=== PATIENT | female | born 1955 | race Caucasian/White ===

== ENCOUNTER → 2019-03-19 | Outpatient (CLI) | payer OTHER ==
[~2019-03-19] MED LIST: Flomax0.4 MG PO; IBUP600 PO; KETO10 PO; METPRE4DP PO; ONDA4ODT MM; Robaxin-750750 MG PO; TRAM50 PO; Ultram50 MG PO; Zofran Odt4 MG SL
[2019-03-19 19:39] LABS: Creatinine, Urine Random 88.8 mg/dL (27.00-270.00); Microalb/Creat Ratio UR, Rand 55.293 mg/g (0.000-30.000); Microalbumin, Random Urine 49.1 mg/L (0.000-20.000)
== END ==
LOC: LAB SHORT 13:45 → LAB EV 13:45
PROVIDERS: Nurse Practitioner Family
DX: E11.65 Type 2 diabetes mellitus with hyperglycemia (principal); R42 Dizziness and giddiness
CPT/HCPCS: 82043; 82570; 87077; 87086; 87186

== ENCOUNTER → 2019-03-20 | Outpatient (CLI) | payer OTHER ==
[2019-03-20 19:02] LABS: Adenovirus F 40/41 Not Detected (NOT DETECT); Astrovirus Not Detected (NOT DETECT); Campylobacter Sp Not Detected (NOT DETECT); Cryptosporidium Not Detected (NOT DETECT); Cyclospora Cayetanensis Not Detected (NOT DETECT); E. Coli O157 Not Detected (NOT DETECT); Entamoeba Histolytica Not Detected (NOT DETECT); Enteroaggregative E. coli-EAEC Not Detected (NOT DETECT); Enteropathogenic E. coli-EPEC Not Detected (NOT DETECT); Enterotoxigenic E. coli-ETEC Not Detected (NOT DETECT); Giardia Lamblia Not Detected (NOT DETECT); Norovirus GI/GII Not Detected (NOT DETECT); Plesiomonas Shigelloides Not Detected (NOT DETECT); Rotavirus A Not Detected (NOT DETECT); Salmonella Sp Not Detected (NOT DETECT); Sapovirus Not Detected (NOT DETECT); Shiga Toxin-prod E. coli-STEC Not Detected (NOT DETECT); Shigella/Enteroin E. coli-EIEC Not Detected (NOT DETECT); Vibrio Cholerae Not Detected (NOT DETECT); Vibrio Sp Not Detected (NOT DETECT); Yersinia Enterocolitica Not Detected (NOT DETECT)
== END | disposition home or self-care (01) ==
LOC: LAB SHORT 12:27 → LAB EV 12:27
PROVIDERS: Physician Assistant Medical
DX: A06.1 Chronic intestinal amebiasis (principal)
CPT/HCPCS: 87507

== ENCOUNTER → 2019-04-03 | Outpatient (CLI) | payer OTHER ==
[2019-04-03 16:59] LABS: BASOPHILS ABSOLUTE AUTO 0.07 K/mm3 (0.00-0.23); BASOPHILS PERCENT AUTO 1 % (0-2); EOSINOPHILS ABSOLUTE AUTO 0.23 K/mm3 (0.00-0.68); EOSINOPHILS PERCENT AUTO 3 % (0-6); Hematocrit 39.9 % (33.0-51.0); Hemoglobin 13.2 g/dL (11.5-16.0); IMMATURE GRAN ABSOLUTE AUTO 0.03 K/mm3 (0.00-0.10); IMMATURE GRAN PERCENT AUTO 0 % (0-1); LYMPHOCYTES ABSOLUTE AUTO 2.77 K/mm3 (0.84-5.20); LYMPHOCYTES PERCENT AUTO 32 % (21-46); MONOCYTES ABSOLUTE AUTO 0.78 K/mm3 (0.16-1.47); MONOCYTES PERCENT AUTO 9 % (4-13); Mean Corpuscular HGB 28.2 pg (26.0-34.0); Mean Corpuscular HGB Conc 33.1 g/dL (31.5-36.5); Mean Corpuscular Volume 85 fL (80-100); Mean Platelet Volume 11.7 fL (9.1-12.4); NEUTROPHILS ABSOLUTE AUTO 4.89 K/mm3 (1.96-9.15); NEUTROPHILS PERCENT AUTO 56 % (41-73); Platelet Count 245 K/mm3 (150-400); RDW Coefficient Variation 13.2 % (11.7-14.2); RDW Standard Deviation 40.9 fL (35.1-46.3); Red Blood Cell Count 4.68 M/mm3 (3.80-5.20); White Blood Cell Count 8.77 K/mm3 (4.00-11.30)
[2019-04-03 17:18] LABS: Alanine Aminotransfer (ALT/SGP 27 U/L (12-78); Albumin, Blood 3.8 g/dL (3.4-5.0); Alk Phos 84 U/L (40-126); Anion Gap 10 mmol/L (6-16); Aspartate Aminotrans (AST/SGOT 16 U/L (12-37); Bilirubin, Total 0.3 mg/dL (0.1-1.0); Blood Urea Nitrogen 19 mg/dL (8-24); Bun/Creatinine Ratio 23.8 (12.0-20.0); CO2, Blood 27 mmol/L (21-32); Calcium, Blood 8.8 mg/dL (8.5-10.1); Chloride, Blood 100 mmol/L (98-108); Globulin, Blood 3.7 g/dL (2.2-4.0); Glomerular Filtration Rate >60 (60-); Glucose, Blood 223 mg/dL (70-99); Potassium, Blood 4.5 mmol/L (3.5-5.5); Sodium, Blood 137 mmol/L (136-145); Thyroid Stimulating Hormone 1.833 uIU/mL (0.360-4.800); Total Protein, Blood 7.5 g/dL (6.4-8.2)
[2019-04-05 06:06] LABS: COMPLEMENT C3, SERUM 154 mg/dL (82-167); COMPLEMENT C4, SERUM 30 mg/dL (14-44)
[2019-04-05 18:05] LABS: ANTI-DSDNA ANTIBODIES <1 IU/mL (0-9); RNP ANTIBODIES <0.2 AI (0.0-0.9); SJOGREN'S ANTI-SS-A <0.2 AI (0.0-0.9); SJOGREN'S ANTI-SS-B <0.2 AI (0.0-0.9); SMITH ANTIBODIES <0.2 AI (0.0-0.9)
== END | disposition home or self-care (01) ==
LOC: LAB EV 16:53 → LAB SHORT 16:53
PROVIDERS: Physician Assistant
DX: R21 Rash and other nonspecific skin eruption (principal); R53.83 Other fatigue
CPT/HCPCS: 80053; 84443; 85025; 85651; 86160; 86225; 86235

== ENCOUNTER 2019-04-30 01:34 | Emergency (ER) | payer OTHER ==
[~2019-04-30] VITALS: Ht 160 cm; Wt 72.6 kg
[2019-04-30] MEDS ORDERED: INSULANPEN (02:19)
[2019-04-30] MEDS ORDERED: METF500 (02:19)
[2019-04-30] MEDS ORDERED: CYCL10 PO (03:05)
[2019-09-16] MEDS ORDERED: IBUP800 (14:16)
== END 2019-04-30 03:43 | disposition home or self-care (01) ==
LOC: ER 01:34
DX: M54.42 Lumbago with sciatica, left side (principal); Z88.5 Allergy status to narcotic agent; E11.9 Type 2 diabetes mellitus without complications
CPT/HCPCS: 96372; 99283-25; J1885

== ENCOUNTER 2019-05-01 22:45 | Emergency (ER) | payer OTHER ==
[~2019-05-01] VITALS: Ht 160 cm; Wt 72.6 kg
[~2019-05-01 22:45] MED LIST changes: +CYCL10 PO; +INSULANPEN; +METF500
[2019-05-02] MEDS ORDERED: KETO10 PO (01:04)
[2019-05-02] MEDS ORDERED: Prednisone20 MG PO (01:04)
[2019-05-03] MEDS ORDERED: Norco 5-325 Ta1 EACH PO (14:24)
[2019-05-03] MEDS ORDERED: METF500 PO (14:24)
[2019-09-16] MEDS ORDERED: IBUP800 (14:16)
== END 2019-05-02 01:35 | disposition home or self-care (01) ==
LOC: ER 22:45
DX: M54.42 Lumbago with sciatica, left side (principal); Z88.5 Allergy status to narcotic agent; Z79.899 Other long term (current) drug therapy; Z79.4 Long term (current) use of insulin; Z79.52 Long term (current) use of systemic steroids; E11.9 Type 2 diabetes mellitus without complications
CPT/HCPCS: 96372; 99282-25; J1885; J7512

== ENCOUNTER 2019-05-03 04:37 | Emergency (ER) | payer OTHER ==
[~2019-05-03] VITALS: Ht 160 cm; Wt 72.6 kg
[~2019-05-03 04:37] MED LIST changes: +Prednisone20 MG PO
[2019-05-03 08:50] LABS: BASOPHILS ABSOLUTE AUTO 0.05 K/mm3 (0.00-0.23); BASOPHILS PERCENT AUTO 1 % (0-2); EOSINOPHILS ABSOLUTE AUTO 0.17 K/mm3 (0.00-0.68); EOSINOPHILS PERCENT AUTO 2 % (0-6); Hematocrit 40.3 % (33.0-51.0); Hemoglobin 13.3 g/dL (11.5-16.0); IMMATURE GRAN ABSOLUTE AUTO 0.03 K/mm3 (0.00-0.10); IMMATURE GRAN PERCENT AUTO 0 % (0-1); LYMPHOCYTES ABSOLUTE AUTO 3.42 K/mm3 (0.84-5.20); LYMPHOCYTES PERCENT AUTO 46 % (21-46); MONOCYTES PERCENT AUTO 11 % (4-13); Mean Corpuscular HGB 28.9 pg (26.0-34.0); Mean Corpuscular Volume 88 fL (80-100); Mean Platelet Volume 11.9 fL (9.1-12.4); NEUTROPHILS ABSOLUTE AUTO 2.92 K/mm3 (1.96-9.15); NEUTROPHILS PERCENT AUTO 40 % (41-73); Platelet Count 240 K/mm3 (150-400); RDW Coefficient Variation 13.1 % (11.7-14.2); RDW Standard Deviation 41.9 fL (35.1-46.3); White Blood Cell Count 7.39 K/mm3 (4.00-11.30)
[2019-05-03 09:14] LABS: Troponin I <0.015 ng/mL (0.000-0.040)
[2019-05-03 09:17] LABS: Alanine Aminotransfer (ALT/SGP 16 U/L (12-78); Albumin, Blood 3.3 g/dL (3.4-5.0); Alk Phos 76 U/L (50-136); Anion Gap 6 mmol/L (6-16); Aspartate Aminotrans (AST/SGOT 6 U/L (12-37); Bilirubin, Total 0.5 mg/dL (0.1-1.0); Blood Urea Nitrogen 27 mg/dL (8-24); Bun/Creatinine Ratio 46.2 (12.0-20.0); CO2, Blood 26 mmol/L (21-32); Chloride, Blood 104 mmol/L (98-108); Creatinine, Blood 0.59 mg/dL (0.40-1.00); Globulin, Blood 3.3 g/dL (2.2-4.0); Glomerular Filtration Rate >60 (60-); Glucose, Blood 281 mg/dL (70-99); Sodium, Blood 136 mmol/L (136-145); Total Protein, Blood 6.6 g/dL (6.4-8.2)
[2019-05-03] MEDS ORDERED: METF500 PO (14:24)
[2019-05-03] MEDS ORDERED: Norco 5-325 Ta1 EACH PO (14:24)
[2019-09-16] MEDS ORDERED: IBUP800 (14:16)
== END 2019-05-03 18:14 | disposition home or self-care (01) ==
LOC: ER 04:37
PROVIDERS: Emergency Medicine
DX: M54.32 Sciatica, left side (principal); Z88.5 Allergy status to narcotic agent; Z88.8 Allergy status to other drugs, medicaments and biological substances; Z79.899 Other long term (current) drug therapy; Z79.4 Long term (current) use of insulin; Z79.52 Long term (current) use of systemic steroids; E11.9 Type 2 diabetes mellitus without complications
CPT/HCPCS: 70450; 72100; 72148; 73502; 80053; 84484; 85025; 93005; 93010; 96361; 96372-59; 96374; 96375; 96376; 99285-25; J1170; J2405; J3010

== ENCOUNTER 2019-06-27 05:37 | Emergency (ER) | payer OTHER ==
[~2019-06-27] VITALS: Ht 160 cm; Wt 69.0 kg
[~2019-06-27 05:37] MED LIST changes: +METF500 PO; +Norco 5-325 Ta1 EACH PO
[2019-06-27 07:00] LABS: Source, Urine Clean Catch
[2019-06-27 07:04] LABS: Bilirubin, Urine Neg (Neg); Blood, Urine 2+ (Neg); Glucose Qualitative, Urine 2+ (Neg); Ketones, Urine 1+ (Neg); Leukocyte Esterase, Urine 2+ (Neg); Nitrite, Urine Neg (Neg); Protein, Urine 3+ (Neg); Urobilinogen, Urine NORM (Normal)
[2019-06-27 07:05] LABS: Appearance, Urine Hazy (Clear); Color, Urine Yellow (P-Yellow)
[2019-06-27 07:14] LABS: Squamous Epithelial Cells Many /hpf (Few)
[2019-06-27 07:15] LABS: Amorphous Mod (0-Heavy); Bacteria Few /hpf; Granular Casts 0-2 /lpf (0); Mucus Heavy (0-Heavy); WBC Cast 0-2 /lpf (0)
[2019-06-27 07:16] LABS: Hyaline Casts TNTC /lpf (0-2)
[2019-06-27 07:29] LABS: BASOPHILS ABSOLUTE AUTO 0.06 K/mm3 (0.00-0.23); BASOPHILS PERCENT AUTO 1 % (0-2); EOSINOPHILS ABSOLUTE AUTO 0.27 K/mm3 (0.00-0.68); EOSINOPHILS PERCENT AUTO 3 % (0-6); Hematocrit 44.9 % (33.0-51.0); Hemoglobin 14.4 g/dL (11.5-16.0); IMMATURE GRAN ABSOLUTE AUTO 0.06 K/mm3 (0.00-0.10); IMMATURE GRAN PERCENT AUTO 1 % (0-1); LYMPHOCYTES ABSOLUTE AUTO 3.06 K/mm3 (0.84-5.20); LYMPHOCYTES PERCENT AUTO 32 % (21-46); MONOCYTES ABSOLUTE AUTO 0.86 K/mm3 (0.16-1.47); MONOCYTES PERCENT AUTO 9 % (4-13); Mean Corpuscular HGB 27.9 pg (26.0-34.0); Mean Corpuscular HGB Conc 32.1 g/dL (31.5-36.5); Mean Corpuscular Volume 87 fL (80-100); Mean Platelet Volume 11.8 fL (9.1-12.4); NEUTROPHILS ABSOLUTE AUTO 5.14 K/mm3 (1.96-9.15); NEUTROPHILS PERCENT AUTO 54 % (41-73); Platelet Count 278 K/mm3 (150-400); RDW Coefficient Variation 13.3 % (11.7-14.2); RDW Standard Deviation 42.3 fL (35.1-46.3); Red Blood Cell Count 5.16 M/mm3 (3.80-5.20); White Blood Cell Count 9.45 K/mm3 (4.00-11.30)
[2019-06-27 07:51] LABS: Alanine Aminotransfer (ALT/SGP 24 U/L (12-78); Albumin, Blood 3.8 g/dL (3.4-5.0); Alk Phos 79 U/L (50-136); Anion Gap 9 mmol/L (6-16); Aspartate Aminotrans (AST/SGOT 12 U/L (12-37); Bilirubin, Total 0.3 mg/dL (0.1-1.0); Blood Urea Nitrogen 21 mg/dL (8-24); Bun/Creatinine Ratio 32.6 (12.0-20.0); CO2, Blood 26 mmol/L (21-32); Calcium, Blood 9.3 mg/dL (8.5-10.1); Chloride, Blood 102 mmol/L (98-108); Creatinine, Blood 0.64 mg/dL (0.40-1.00); Globulin, Blood 3.9 g/dL (2.2-4.0); Glomerular Filtration Rate >60 (60-); Glucose, Blood 237 mg/dL (70-99); Potassium, Blood 4.1 mmol/L (3.5-5.5); Sodium, Blood 137 mmol/L (136-145); Total Protein, Blood 7.7 g/dL (6.4-8.2)
[2019-09-16] MEDS ORDERED: IBUP800 (14:16)
== END 2019-06-27 09:45 | disposition home or self-care (01) ==
LOC: ER 05:37
PROVIDERS: Emergency Medicine
DX: R10.9 Unspecified abdominal pain (principal); Z88.5 Allergy status to narcotic agent; Z88.8 Allergy status to other drugs, medicaments and biological substances; Z79.4 Long term (current) use of insulin; E11.9 Type 2 diabetes mellitus without complications
CPT/HCPCS: 36415; 74176; 80053; 81001; 85025; 96374; 99284-25; J1885

== ENCOUNTER 2019-07-14 10:50 | Emergency (ER) | payer OTHER ==
[~2019-07-14] VITALS: Ht 160 cm; Wt 68.0 kg
[2019-07-14] MEDS ORDERED: DULO30 PO (11:30)
[2019-07-14 11:42] LABS: BASOPHILS ABSOLUTE AUTO 0.05 K/mm3 (0.00-0.23); BASOPHILS PERCENT AUTO 1 % (0-2); EOSINOPHILS ABSOLUTE AUTO 0.15 K/mm3 (0.00-0.68); EOSINOPHILS PERCENT AUTO 2 % (0-6); Hematocrit 39.5 % (33.0-51.0); Hemoglobin 13.3 g/dL (11.5-16.0); IMMATURE GRAN ABSOLUTE AUTO 0.07 K/mm3 (0.00-0.10); IMMATURE GRAN PERCENT AUTO 1 % (0-1); LYMPHOCYTES ABSOLUTE AUTO 2.74 K/mm3 (0.84-5.20); LYMPHOCYTES PERCENT AUTO 29 % (21-46); MONOCYTES ABSOLUTE AUTO 0.78 K/mm3 (0.16-1.47); MONOCYTES PERCENT AUTO 8 % (4-13); Mean Corpuscular HGB 28.5 pg (26.0-34.0); Mean Corpuscular HGB Conc 33.7 g/dL (31.5-36.5); Mean Corpuscular Volume 85 fL (80-100); Mean Platelet Volume 12.2 fL (9.1-12.4); NEUTROPHILS ABSOLUTE AUTO 5.69 K/mm3 (1.96-9.15); NEUTROPHILS PERCENT AUTO 60 % (41-73); Platelet Count 263 K/mm3 (150-400); RDW Coefficient Variation 13.4 % (11.7-14.2); RDW Standard Deviation 41.5 fL (35.1-46.3); Red Blood Cell Count 4.66 M/mm3 (3.80-5.20); White Blood Cell Count 9.48 K/mm3 (4.00-11.30)
[2019-07-14 11:47] LABS: Anion Gap 11 mmol/L (6-16); Blood Urea Nitrogen 22 mg/dL (8-24); CO2, Blood 25 mmol/L (21-32); Calcium, Blood 8.6 mg/dL (8.5-10.1); Chloride, Blood 103 mmol/L (98-108); Creatinine, Blood 0.51 mg/dL (0.40-1.00); Glomerular Filtration Rate >60 (60-); Glucose, Blood 204 mg/dL (70-99); Potassium, Blood 3.9 mmol/L (3.5-5.5); Sodium, Blood 139 mmol/L (136-145)
[2019-07-14] MEDS ORDERED: Norco 5-325 Ta1 EACH PO (13:19)
[2019-07-14] MEDS ORDERED: PROM25 PO (13:19)
[2019-09-16] MEDS ORDERED: IBUP800 (14:16)
== END 2019-07-14 17:10 | disposition home or self-care (01) ==
LOC: ER 10:50
PROVIDERS: Emergency Medicine
DX: F41.9 Anxiety disorder, unspecified (principal); D32.9 Benign neoplasm of meninges, unspecified; Z88.5 Allergy status to narcotic agent; Z88.8 Allergy status to other drugs, medicaments and biological substances; Z79.4 Long term (current) use of insulin; Z79.899 Other long term (current) drug therapy; E11.9 Type 2 diabetes mellitus without complications
CPT/HCPCS: 36415; 70450; 80048; 85025; 96361; 96374; 96375; 99284-25; J0780; J1885; J2060; J2405; J3010; J7030

== ENCOUNTER 2019-08-19 00:50 | Emergency (ER) | payer OTHER ==
[~2019-08-19] VITALS: Ht 160 cm; Wt 69.0 kg
[~2019-08-19 00:50] MED LIST changes: +DULO30 PO; +PROM25 PO
[2019-08-19 02:16] LABS: BASOPHILS ABSOLUTE AUTO 0.06 K/mm3 (0.00-0.23); BASOPHILS PERCENT AUTO 1 % (0-2); EOSINOPHILS ABSOLUTE AUTO 0.17 K/mm3 (0.00-0.68); EOSINOPHILS PERCENT AUTO 2 % (0-6); Hematocrit 39.8 % (33.0-51.0); Hemoglobin 13.2 g/dL (11.5-16.0); IMMATURE GRAN ABSOLUTE AUTO 0.05 K/mm3 (0.00-0.10); IMMATURE GRAN PERCENT AUTO 1 % (0-1); LYMPHOCYTES ABSOLUTE AUTO 3.34 K/mm3 (0.84-5.20); LYMPHOCYTES PERCENT AUTO 40 % (21-46); MONOCYTES ABSOLUTE AUTO 0.89 K/mm3 (0.16-1.47); MONOCYTES PERCENT AUTO 11 % (4-13); Mean Corpuscular HGB 29.4 pg (26.0-34.0); Mean Corpuscular HGB Conc 33.2 g/dL (31.5-36.5); Mean Corpuscular Volume 89 fL (80-100); NEUTROPHILS ABSOLUTE AUTO 3.95 K/mm3 (1.96-9.15); NEUTROPHILS PERCENT AUTO 47 % (41-73); Platelet Count 275 K/mm3 (150-400); RDW Coefficient Variation 13.2 % (11.7-14.2); RDW Standard Deviation 43.2 fL (35.1-46.3); Red Blood Cell Count 4.49 M/mm3 (3.80-5.20); White Blood Cell Count 8.46 K/mm3 (4.00-11.30)
[2019-08-19 02:22] LABS: Source, Urine Clean Catch
[2019-08-19 02:29] LABS: Bilirubin, Urine Neg (Neg); Blood, Urine Neg (Neg); Glucose Qualitative, Urine 4+ (Neg); Ketones, Urine 1+ (Neg); Leukocyte Esterase, Urine 1+ (Neg); Nitrite, Urine Neg (Neg); Protein, Urine 1+ (Neg); Specific Gravity, Urine 1.015 (1.003-1.022); Urobilinogen, Urine NORM (Normal)
[2019-08-19 02:31] LABS: Appearance, Urine Clear (Clear); Color, Urine Yellow (P-Yellow)
[2019-08-19 02:35] LABS: Alanine Aminotransfer (ALT/SGP 22 U/L (12-78); Albumin, Blood 3.5 g/dL (3.4-5.0); Alk Phos 80 U/L (50-136); Anion Gap 11 mmol/L (6-16); Aspartate Aminotrans (AST/SGOT 16 U/L (12-37); Bilirubin, Total 0.3 mg/dL (0.1-1.0); Blood Urea Nitrogen 25 mg/dL (8-24); Bun/Creatinine Ratio 43.2 (12.0-20.0); CO2, Blood 24 mmol/L (21-32); Calcium, Blood 9.1 mg/dL (8.5-10.1); Chloride, Blood 99 mmol/L (98-108); Creatinine, Blood 0.58 mg/dL (0.40-1.00); Globulin, Blood 3.6 g/dL (2.2-4.0); Glomerular Filtration Rate >60 (60-); Glucose, Blood 392 mg/dL (70-99); Potassium, Blood 4.3 mmol/L (3.5-5.5); Sodium, Blood 134 mmol/L (136-145); Total Protein, Blood 7.1 g/dL (6.4-8.2)
[2019-08-19 02:36] LABS: Bacteria Rare /hpf; Red Blood Cells, Urine Not Seen /hpf (0-2); Squamous Epithelial Cells Not Seen /hpf (Few)
[2019-09-16] MEDS ORDERED: IBUP800 (14:16)
== END 2019-08-19 04:21 | disposition home or self-care (01) ==
LOC: ER 00:50
PROVIDERS: Emergency Medicine
DX: R10.9 Unspecified abdominal pain (principal); E11.9 Type 2 diabetes mellitus without complications; Z88.5 Allergy status to narcotic agent; Z88.8 Allergy status to other drugs, medicaments and biological substances; Z79.4 Long term (current) use of insulin; Z79.899 Other long term (current) drug therapy
CPT/HCPCS: 36415; 74018; 80053; 81001; 83690; 85025; 87086; 93005; 93010; 96374; 99284-25; J1885

== ENCOUNTER → 2019-09-02 | Outpatient (CLI) | payer OTHER ==
[~2019-09-02] MED LIST changes: +IBUP800
[2019-09-02 11:34] LABS: BASOPHILS ABSOLUTE AUTO 0.04 K/mm3 (0.00-0.23); BASOPHILS PERCENT AUTO 1 % (0-2); EOSINOPHILS PERCENT AUTO 2 % (0-6); Hematocrit 40.6 % (33.0-51.0); Hemoglobin 13.8 g/dL (11.5-16.0); IMMATURE GRAN ABSOLUTE AUTO 0.03 K/mm3 (0.00-0.10); IMMATURE GRAN PERCENT AUTO 1 % (0-1); LYMPHOCYTES ABSOLUTE AUTO 2.06 K/mm3 (0.84-5.20); LYMPHOCYTES PERCENT AUTO 32 % (21-46); MONOCYTES ABSOLUTE AUTO 0.53 K/mm3 (0.16-1.47); MONOCYTES PERCENT AUTO 8 % (4-13); Mean Corpuscular HGB 29.6 pg (26.0-34.0); Mean Corpuscular Volume 87 fL (80-100); Mean Platelet Volume 12.5 fL (9.1-12.4); NEUTROPHILS ABSOLUTE AUTO 3.63 K/mm3 (1.96-9.15); NEUTROPHILS PERCENT AUTO 57 % (41-73); Platelet Count 264 K/mm3 (150-400); RDW Coefficient Variation 13.3 % (11.7-14.2); RDW Standard Deviation 42.1 fL (35.1-46.3); Red Blood Cell Count 4.67 M/mm3 (3.80-5.20); White Blood Cell Count 6.39 K/mm3 (4.00-11.30)
[2019-09-02 11:46] LABS: Alanine Aminotransfer (ALT/SGP 17 U/L (12-78); Albumin, Blood 3.7 g/dL (3.4-5.0); Albumin/Globulin Ratio 1.1 (0.8-1.8); Alk Phos 86 U/L (40-126); Anion Gap 13 mmol/L (6-16); Aspartate Aminotrans (AST/SGOT 13 U/L (12-37); Bilirubin, Total 0.5 mg/dL (0.1-1.0); Blood Urea Nitrogen 13 mg/dL (8-24); Bun/Creatinine Ratio 15.1 (12.0-20.0); CO2, Blood 22 mmol/L (21-32); Calcium, Blood 9.1 mg/dL (8.5-10.1); Chloride, Blood 100 mmol/L (98-108); Creatinine, Blood 0.86 mg/dL (0.40-1.00); Globulin, Blood 3.5 g/dL (2.2-4.0); Glomerular Filtration Rate >60 (60-); Glucose, Blood 433 mg/dL (70-99); Potassium, Blood 4.6 mmol/L (3.5-5.5); Sodium, Blood 135 mmol/L (136-145); Total Protein, Blood 7.2 g/dL (6.4-8.2)
== END | disposition home or self-care (01) ==
LOC: LAB EV 11:29 → LAB SHORT 11:29
PROVIDERS: Physician Assistant
DX: K86.1 Other chronic pancreatitis (principal)
CPT/HCPCS: 80053; 83690; 85025

== ENCOUNTER → 2019-09-20 | Outpatient (CLI) | payer OTHER ==
[2019-09-23 20:19] LABS: Campylobacter Sp Not Detected (NOT DETECT)
[2019-09-23 20:20] LABS: Adenovirus F 40/41 Not Detected (NOT DETECT); Astrovirus Not Detected (NOT DETECT); Cryptosporidium Not Detected (NOT DETECT); Cyclospora Cayetanensis Not Detected (NOT DETECT); E. Coli O157 Not Detected (NOT DETECT); Entamoeba Histolytica Not Detected (NOT DETECT); Enteroaggregative E. coli-EAEC Not Detected (NOT DETECT); Enteropathogenic E. coli-EPEC Not Detected (NOT DETECT); Enterotoxigenic E. coli-ETEC Not Detected (NOT DETECT); Giardia Lamblia Not Detected (NOT DETECT); Norovirus GI/GII Not Detected (NOT DETECT); Plesiomonas Shigelloides Not Detected (NOT DETECT); Rotavirus A Not Detected (NOT DETECT); Salmonella Sp Not Detected (NOT DETECT); Sapovirus Not Detected (NOT DETECT); Shiga Toxin-prod E. coli-STEC Not Detected (NOT DETECT); Shigella/Enteroin E. coli-EIEC Not Detected (NOT DETECT); Vibrio Cholerae Not Detected (NOT DETECT); Vibrio Sp Not Detected (NOT DETECT); Yersinia Enterocolitica Not Detected (NOT DETECT)
== END | disposition home or self-care (01) ==
LOC: LAB EV 09-19 14:55
PROVIDERS: Physician Assistant Medical
DX: A06.1 Chronic intestinal amebiasis (principal)
CPT/HCPCS: 0097U

== ENCOUNTER 2019-10-02 07:38 | Emergency (ER) | payer OTHER ==
[~2019-10-02] VITALS: Ht 160 cm; Wt 68.0 kg
[2019-10-02] MEDS ORDERED: OMEPRAZOLE20 MG PO (08:05)
[2019-10-02 08:13] LABS: Source, Urine Clean Catch
[2019-10-02 08:19] LABS: Bilirubin, Urine Neg (Neg); Blood, Urine Neg (Neg); Glucose Qualitative, Urine 2+ (Neg); Ketones, Urine Neg (Neg); Leukocyte Esterase, Urine 3+ (Neg); Nitrite, Urine Neg (Neg); Protein, Urine 2+ (Neg); Urobilinogen, Urine NORM (Normal)
[2019-10-02 08:23] LABS: BASOPHILS ABSOLUTE AUTO 0.07 K/mm3 (0.00-0.23); BASOPHILS PERCENT AUTO 1 % (0-2); EOSINOPHILS ABSOLUTE AUTO 0.15 K/mm3 (0.00-0.68); EOSINOPHILS PERCENT AUTO 2 % (0-6); Hematocrit 43.1 % (33.0-51.0); Hemoglobin 14.3 g/dL (11.5-16.0); IMMATURE GRAN ABSOLUTE AUTO 0.02 K/mm3 (0.00-0.10); IMMATURE GRAN PERCENT AUTO 0 % (0-1); LYMPHOCYTES ABSOLUTE AUTO 2.88 K/mm3 (0.84-5.20); LYMPHOCYTES PERCENT AUTO 43 % (21-46); MONOCYTES ABSOLUTE AUTO 0.62 K/mm3 (0.16-1.47); MONOCYTES PERCENT AUTO 9 % (4-13); Mean Corpuscular HGB 28.9 pg (26.0-34.0); Mean Corpuscular HGB Conc 33.2 g/dL (31.5-36.5); Mean Corpuscular Volume 87 fL (80-100); Mean Platelet Volume 12.2 fL (9.1-12.4); NEUTROPHILS ABSOLUTE AUTO 2.96 K/mm3 (1.96-9.15); NEUTROPHILS PERCENT AUTO 44 % (41-73); Platelet Count 274 K/mm3 (150-400); RDW Coefficient Variation 12.4 % (11.7-14.2); RDW Standard Deviation 39.7 fL (35.1-46.3); Red Blood Cell Count 4.95 M/mm3 (3.80-5.20)
[2019-10-02 08:29] LABS: Appearance, Urine Clear (Clear); Color, Urine Yellow (P-Yellow)
[2019-10-02 08:30] LABS: Bacteria Few /hpf; Red Blood Cells, Urine Not Seen /hpf (0-2); Squamous Epithelial Cells Mod /hpf (Few)
[2019-10-02 08:31] LABS: Hyaline Casts 0-2 /lpf (0-2); Mucus Light (0-Heavy); Transitional Epithelial Cells Few /hpf (0-Rare)
[2019-10-02 08:41] LABS: Alanine Aminotransfer (ALT/SGP 18 U/L (12-78); Albumin, Blood 3.8 g/dL (3.4-5.0); Alk Phos 74 U/L (50-136); Anion Gap 10 mmol/L (6-16); Aspartate Aminotrans (AST/SGOT 10 U/L (12-37); Bilirubin, Total 0.4 mg/dL (0.1-1.0); Blood Urea Nitrogen 19 mg/dL (8-24); CO2, Blood 25 mmol/L (21-32); Calcium, Blood 9.5 mg/dL (8.5-10.1); Chloride, Blood 102 mmol/L (98-108); Creatinine, Blood 0.61 mg/dL (0.40-1.00); Globulin, Blood 3.7 g/dL (2.2-4.0); Glomerular Filtration Rate >60 (60-); Glucose, Blood 253 mg/dL (70-99); Potassium, Blood 4.2 mmol/L (3.5-5.5); Sodium, Blood 137 mmol/L (136-145); Total Protein, Blood 7.5 g/dL (6.4-8.2)
[2019-10-02] MEDS ORDERED: KETO10 PO (08:59)
== END 2019-10-02 09:11 | disposition home or self-care (01) ==
LOC: ER 07:38
PROVIDERS: Emergency Medicine
DX: R10.9 Unspecified abdominal pain (principal); E11.65 Type 2 diabetes mellitus with hyperglycemia; Z91.018 Allergy to other foods; Z88.5 Allergy status to narcotic agent; Z79.84 Long term (current) use of oral hypoglycemic drugs
CPT/HCPCS: 36415; 80053; 81001; 85025; 87086; 96374; 99284-25; J1885

== ENCOUNTER 2019-10-14 10:28 | Day surgery (SDC) | payer OTHER ==
[~2019-10-14] VITALS: Ht 160 cm; Wt 69.9 kg
[~2019-10-14 10:28] MED LIST changes: +OMEPRAZOLE20 MG PO
--- NOTE | 2019-10-14 12:14 | NUR ---
10/14/19 1214 Cassy Camarena SURGEON AND ANESTHESIA NOTIFIED OF ELEVATED BLOOD PRESSURE AND BLOOD SUGAR. NO ORDERS AT THIS TIME.
--- NOTE | 2019-10-14 12:58 | NUR ---
10/14/19 Walter8 Cassy Camarena SIMETHICONE USED DURING PROCEDURE.
== END 2019-10-14 14:00 | disposition home or self-care (01) ==
LOC: ORSCSDS 10:28
DX: Z12.11 Encounter for screening for malignant neoplasm of colon (principal); D12.3 Benign neoplasm of transverse colon; D12.2 Benign neoplasm of ascending colon; D12.0 Benign neoplasm of cecum; D12.5 Benign neoplasm of sigmoid colon; K64.8 Other hemorrhoids; I10 Essential (primary) hypertension; G47.33 Obstructive sleep apnea (adult) (pediatric); E78.5 Hyperlipidemia, unspecified; E11.9 Type 2 diabetes mellitus without complications; Z79.84 Long term (current) use of oral hypoglycemic drugs
CPT/HCPCS: 82947; 88305; J2704; J7120

== ENCOUNTER 2019-12-05 19:26 | Inpatient (IN) | payer OTHER ==
[~2019-12-05] VITALS: Ht 160 cm; Wt 83.8 kg
[2019-12-05 19:45] LABS: Chloride (POC) 103 mmol/L (98-108); Creatinine (POC) 2.9 mg/dL (0.6-1.0); Glucose (ISTAT POC) >700 mg/dL (70-99); Hemoglobin (POC) 16.3 g/dL (12.0-16.0); Potassium (POC) 4.3 mmol/L (3.5-5.5); Sodium (POC) 132 mmol/L (135-148); Total CO2 (POC) 13 mmol/L (21-32)
[2019-12-05 19:50] LABS: Source, Urine Catheter
[2019-12-05 19:53] LABS: Appearance, Urine Clear (Clear); Bilirubin, Urine Neg (Neg); Blood, Urine Neg (Neg); Color, Urine Yellow (P-Yellow); Glucose Qualitative, Urine 4+ (Neg); Ketones, Urine 3+ (Neg); Leukocyte Esterase, Urine Neg (Neg); Nitrite, Urine Neg (Neg); Protein, Urine 1+ (Neg); Urobilinogen, Urine NORM (Normal)
[2019-12-05 20:15] LABS: U Amphetamine Screen Not Detected; U Barbituate Screen Not Detected; U Benzodiazapine Screen Not Detected; U Buprenorphine Screen Not Detected; U Cannabinoids Screen Not Detected; U Cocaine Screen Not Detected; U Methadone Screen Not Detected; U Methamphetamine Screen Not Detected; U Opiates Screen Not Detected; U Oxycodone Screen Not Detected; U Phencyclidine Screen Not Detected; U Propoxyphene Screen Not Detected
[2019-12-05 20:23] LABS: pH Blood Arterial 7.15 (7.35-7.45)
[2019-12-05 20:24] LABS: PO2 Arterial > 100 mmHg (80-100)
[2019-12-05 20:54] LABS: BASOPHILS ABSOLUTE AUTO 0.03 K/mm3 (0.00-0.23); BASOPHILS PERCENT AUTO 0 % (0-2); EOSINOPHILS ABSOLUTE AUTO 0.01 K/mm3 (0.00-0.68); EOSINOPHILS PERCENT AUTO 0 % (0-6); Hematocrit 34.3 % (33.0-51.0); Hemoglobin 11.5 g/dL (11.5-16.0); IMMATURE GRAN ABSOLUTE AUTO 0.13 K/mm3 (0.00-0.10); IMMATURE GRAN PERCENT AUTO 1 % (0-1); LYMPHOCYTES ABSOLUTE AUTO 0.92 K/mm3 (0.84-5.20); LYMPHOCYTES PERCENT AUTO 9 % (21-46); MONOCYTES ABSOLUTE AUTO 1.18 K/mm3 (0.16-1.47); MONOCYTES PERCENT AUTO 12 % (4-13); Mean Corpuscular HGB 28.7 pg (26.0-34.0); Mean Corpuscular HGB Conc 33.5 g/dL (31.5-36.5); Mean Corpuscular Volume 86 fL (80-100); NEUTROPHILS ABSOLUTE AUTO 7.86 K/mm3 (1.96-9.15); NEUTROPHILS PERCENT AUTO 78 % (41-73); Platelet Count 146 K/mm3 (150-400); RDW Coefficient Variation 13.5 % (11.7-14.2); RDW Standard Deviation 42.3 fL (35.1-46.3); Red Blood Cell Count 4.01 M/mm3 (3.80-5.20); White Blood Cell Count 10.13 K/mm3 (4.00-11.30)
[2019-12-05 20:56] LABS: Mean Platelet Volume 14.2 fL (9.1-12.4)
[2019-12-05 21:13] LABS: Magnesium, Blood 2.5 mg/dL (1.6-2.4); Troponin I <0.015 ng/mL (0.000-0.040)
[2019-12-05 21:18] LABS: Alanine Aminotransfer (ALT/SGP 28 U/L (12-78); Albumin, Blood 1.8 g/dL (3.4-5.0); Albumin/Globulin Ratio 0.6 (0.8-1.8); Alk Phos 83 U/L (50-136); Anion Gap 22 mmol/L (6-16); Aspartate Aminotrans (AST/SGOT 28 U/L (12-37); Bilirubin, Total 0.4 mg/dL (0.1-1.0); Blood Urea Nitrogen 115 mg/dL (8-24); Bun/Creatinine Ratio 50.4 (12.0-20.0); CO2, Blood 11 mmol/L (21-32); Calcium, Blood 7.3 mg/dL (8.5-10.1); Chloride, Blood 107 mmol/L (98-108); Creatinine, Blood 2.28 mg/dL (0.40-1.00); Globulin, Blood 2.9 g/dL (2.2-4.0); Glomerular Filtration Rate 23 (60-); Glucose, Blood 762 mg/dL (70-99); Potassium, Blood 2.6 mmol/L (3.5-5.5); Sodium, Blood 140 mmol/L (136-145); Total Protein, Blood 4.7 g/dL (6.4-8.2)
[2019-12-05 21:26] LABS: Glucose, Blood 775 mg/dL (70-99)
[2019-12-05 21:37] LABS: Candida species (DNA Probe) Negative (NEGATIVE); G. vaginalis (DNA Probe) Negative (NEGATIVE); T. vaginalis (DNA Probe) Negative (NEGATIVE)
[2019-12-05 22:10] LABS: PCO2 Arterial 21.8 mmHg (35-45); PO2 Arterial 362 mmHg (80-100)
[2019-12-05 22:23] LABS: Influenza A Negative (NEGATIVE); Influenza B Negative (NEGATIVE)
[2019-12-06 00:43] LABS: Bun/Creatinine Ratio 50.2 (12.0-20.0); Creatinine, Blood 2.03 mg/dL (0.40-1.00); Potassium, Blood 3.1 mmol/L (3.5-5.5)
[2019-12-06 01:20] LABS: Glucose (ISTAT POC) 647 mg/dL (70-99)
[2019-12-06 02:15] LABS: Glucose (ISTAT POC) 625 mg/dL (70-99)
[2019-12-06 03:10] LABS: Glucose (ISTAT POC) 583 mg/dL (70-99)
[2019-12-06 04:15] LABS: Glucose (ISTAT POC) 539 mg/dL (70-99)
[2019-12-06 05:05] LABS: Glucose (ISTAT POC) 486 mg/dL (70-99)
[2019-12-06 05:11] LABS: BASOPHILS ABSOLUTE AUTO 0.02 K/mm3 (0.00-0.23); BASOPHILS PERCENT AUTO 0 % (0-2); EOSINOPHILS PERCENT AUTO 0 % (0-6); Hematocrit 37.5 % (33.0-51.0); Hemoglobin 12.8 g/dL (11.5-16.0); IMMATURE GRAN ABSOLUTE AUTO 0.09 K/mm3 (0.00-0.10); IMMATURE GRAN PERCENT AUTO 1 % (0-1); LYMPHOCYTES ABSOLUTE AUTO 1.17 K/mm3 (0.84-5.20); LYMPHOCYTES PERCENT AUTO 12 % (21-46); MONOCYTES ABSOLUTE AUTO 0.42 K/mm3 (0.16-1.47); MONOCYTES PERCENT AUTO 4 % (4-13); Mean Corpuscular HGB 28.6 pg (26.0-34.0); Mean Corpuscular HGB Conc 34.1 g/dL (31.5-36.5); Mean Corpuscular Volume 84 fL (80-100); Mean Platelet Volume 13.2 fL (9.1-12.4); NEUTROPHILS ABSOLUTE AUTO 7.84 K/mm3 (1.96-9.15); NEUTROPHILS PERCENT AUTO 82 % (41-73); Platelet Count 212 K/mm3 (150-400); RDW Coefficient Variation 13.5 % (11.7-14.2); RDW Standard Deviation 41.1 fL (35.1-46.3); Red Blood Cell Count 4.48 M/mm3 (3.80-5.20); White Blood Cell Count 9.54 K/mm3 (4.00-11.30)
[2019-12-06 05:20] LABS: PCO2 Arterial 25.1 mmHg (35-45); PO2 Arterial 220 mmHg (80-100)
[2019-12-06 05:21] LABS: pH Blood Arterial 7.21 (7.35-7.45)
[2019-12-06 05:26] LABS: Albumin, Blood 2.1 g/dL (3.4-5.0); Albumin/Globulin Ratio 0.7 (0.8-1.8); Bilirubin, Total 0.4 mg/dL (0.1-1.0); Bun/Creatinine Ratio 45.6 (12.0-20.0); Calcium, Blood 6.9 mg/dL (8.5-10.1); Creatinine, Blood 2.17 mg/dL (0.40-1.00); Globulin, Blood 3.1 g/dL (2.2-4.0); Magnesium, Blood 1.7 mg/dL (1.6-2.4); Phosphorus, Blood 3.1 mg/dL (2.5-4.9); Potassium, Blood 3.2 mmol/L (3.5-5.5); Total Protein, Blood 5.2 g/dL (6.4-8.2)
--- NOTE | 2019-12-06 06:27 | NUR ---
SHIFT SUMMARY PATIENT HAD DONE WELL THROUGH THE NIGHT. PATIENT CONTINUES TO BE NONRESPONSIVE TO ALL STIMULI, HOWEVER DID NOTICE A COUPLE OF SWALLOWS JUST 30 MINUTES AGO. NO REAL PURPOSEFUL MOVEMENT, BUT THIS IS FIRST MOVEMENT I HAVE SEEN THIS SHIFT. AFTER 3 PATIENT STARTED BREATHING OVER VENTILATOR, ~ 25 BREATHS/MIN. CARDIAC HAS IMPROVED. CVP NOW READING CONSISTENTLY 8-9 AFTER FLUID BOLUSES. TOTAL PATIENT HAS RECEIVED 5L BETWEEN ED AND ICU, NOW RECEIVING 6th LITER. PERIPHERAL PULSES STILL VERY FAINT, HOWEVER HR IS NOW UP TO 90S, BPs IMPROVING WITH FLUIDS, WEANING LEVOPHED. VENTILATOR SETTINGS UNCHANGED SAVE FOR FIO2, NOW DOWN TO 35%. AC/VC, R=16 MC=565 PEEP=5. LUNG SOUNDS CLEAR THROUGHOUT, SLIGHTLY DIMINISHED IN BASES, SECRETIONS SCANT. NO BM TONIGHT, MINIMAL GASTRIC FLUID OUT OG. URINE OUTPUT 125 ML OVER ENTIRE SHIFT. SKIN IS UNCHANGED, SEE ASSESSMENT, PICTURES IN CHART. WAS ABLE TO SPEAK WITH DAUGHTER, DANIAL WHO LIVES IN [place], PLANNING TO FLY INTO TOWN IN NEXT ~2 DAYS. VSS. NO C/O PAIN. WILL CONTINUE TO MONITOR.
--- NOTE | 2019-12-06 08:45 | NUR ---
Echocardiogram completed.
[2019-12-06 10:20] LABS: Base Excess Venous -9.6 mmol/L; pH Blood Venous 7.41 (7.34-7.37)
--- NOTE | 2019-12-06 10:33 | NUR ---
0800 PT MISHEL AND WILL RESPOND SLOWLY. SHE ONLY HAS VERY SL RANDOM MOVEMNET OF HANDS TO NOXIOUS STIMULATION. THERE IS SL GAG RESPONSE TO ORAL CARE. TEMP IS SLOWLY RISING NOTED AND WARMING IS NOW PLACED ON STANDBY. PT VENTED AND ON PRESSORS WITH MISC TKO FOR INSULIN AND ABX LINES. PT UO IS LOW AND URINE IS ORANGE AND CLEAR. L FEMORAL CENTRAL LINE IS INTACT WITH IVF INFUSING AND SAFE SET AND CVP IS 4 TO 5. PT RR IS STEADY AT 29 WITH SETTING OF AC-16 400 35% 5 PEEP.
[2019-12-06 11:04] LABS: Bun/Creatinine Ratio 44.9 (12.0-20.0); Calcium, Blood 7.1 mg/dL (8.5-10.1); Creatinine, Blood 1.96 mg/dL (0.40-1.00); Magnesium, Blood 1.9 mg/dL (1.6-2.4); Potassium, Blood 4.3 mmol/L (3.5-5.5)
[2019-12-06 11:07] LABS: Thyroid Stimulating Hormone 1.12 uIU/mL (0.360-4.800)
--- NOTE | 2019-12-06 12:36 | NUR ---
CBG 418, INSULIN GTT STARTED AT 8UNITS/HR LANTUS GIVEN, KCL 20MEQ INFUSING. THESE MEDICATIONS VARIFIED WITH DR ORTIZ. PT GRIMACING SLIGHTLY, SHRUGGING SHOULDERS, MOVING HEAD SLIGHTLY FROM SIDE TO SIDE AND TWITCHING RIGHT HAND/WRIST.
--- NOTE | 2019-12-06 13:18 | NUR ---
1200 SL MORE RANDOM NON-PURPOSFUL MOVEMENT OF PT EXTREMETIES WITH THE STIMULATION OF TURNING BUT NO CONTINUATION OF THIS MOVEMENT.
[2019-12-06 16:08] LABS: Base Excess Venous -10.6 mmol/L; Bicarbonate Venous 17.3 mmol/L (24.0-30.0); PCO2 Venous 24.3 mmHg (38-42); PO2 Venous 86.9 mmHg (38-42); pH Blood Venous 7.38 (7.34-7.37)
[2019-12-06 16:35] LABS: Bun/Creatinine Ratio 41.9 (12.0-20.0); Calcium, Blood 7.1 mg/dL (8.5-10.1); Creatinine, Blood 2.15 mg/dL (0.40-1.00); Potassium, Blood 5.9 mmol/L (3.5-5.5)
--- NOTE | 2019-12-06 17:35 | NUR ---
PT I/O STATUS OF URINE, LABS AND STATUS UPDATE CALLED TO DR ORTIZ. NEW ORDERS NOTED. PT VS NOTED ON LEVPHED GTT AT 13 MCG, VASOPERSSIN GTT AT 0.4 2.4ML INSULIN GTT AT 8 UNITS, LR BOLUS TIMES 2L, AND NS TKO WITH ABX INFUSING. PT HAS BEEN HAVING SOME RANDOM TWITCHING W/O PURPOSE. PT RR IS AT 26 [address] VS NOTED OVERALL. DR ORTIZ HAS BEEN MADE AWARE OF PT CURRENT STATUS. TEMP IS NOTED AT 100.
[2019-12-06 21:11] LABS: Base Excess Venous -4.8 mmol/L; Bicarbonate Venous 21.3 mmol/L (24.0-30.0); PCO2 Venous 25.4 mmHg (38-42); pH Blood Venous 7.48 (7.34-7.37)
[2019-12-06 21:26] LABS: Bun/Creatinine Ratio 41.5 (12.0-20.0); Calcium, Blood 7.2 mg/dL (8.5-10.1); Creatinine, Blood 1.88 mg/dL (0.40-1.00); Potassium, Blood 5.8 mmol/L (3.5-5.5)
[2019-12-07 04:11] LABS: BASOPHILS ABSOLUTE AUTO 0.03 K/mm3 (0.00-0.23); BASOPHILS PERCENT AUTO 0 % (0-2); LYMPHOCYTES ABSOLUTE AUTO 2.15 K/mm3 (0.84-5.20); LYMPHOCYTES PERCENT AUTO 15 % (21-46); MONOCYTES ABSOLUTE AUTO 0.99 K/mm3 (0.16-1.47); MONOCYTES PERCENT AUTO 7 % (4-13); Mean Corpuscular HGB 28.5 pg (26.0-34.0); Mean Corpuscular HGB Conc 34.5 g/dL (31.5-36.5); Mean Corpuscular Volume 83 fL (80-100); Mean Platelet Volume 12.7 fL (9.1-12.4); NRBC ABSOLUTE 0.03 K/mm3 (0.00-0.02); NRBC Auto 0.2 /100 WBC (0.0-0.2); Platelet Count 139 K/mm3 (150-400); RDW Coefficient Variation 13.9 % (11.7-14.2); RDW Standard Deviation 40.9 fL (35.1-46.3); Red Blood Cell Count 3.51 M/mm3 (3.80-5.20); White Blood Cell Count 14.08 K/mm3 (4.00-11.30)
[2019-12-07 04:12] LABS: EOSINOPHILS ABSOLUTE AUTO 0.02 K/mm3 (0.00-0.68); EOSINOPHILS PERCENT AUTO 0 % (0-6); IMMATURE GRAN ABSOLUTE AUTO 0.28 K/mm3 (0.00-0.10); IMMATURE GRAN PERCENT AUTO 2 % (0-1); NEUTROPHILS ABSOLUTE AUTO 10.61 K/mm3 (1.96-9.15); NEUTROPHILS PERCENT AUTO 75 % (41-73)
[2019-12-07 04:30] LABS: Anion Gap 10 mmol/L (6-16); Blood Urea Nitrogen 67 mg/dL (8-24); Bun/Creatinine Ratio 40.4 (12.0-20.0); CO2, Blood 18 mmol/L (21-32); Calcium, Blood 7.1 mg/dL (8.5-10.1); Chloride, Blood 117 mmol/L (98-108); Creatinine, Blood 1.66 mg/dL (0.40-1.00); Glomerular Filtration Rate 33 (60-); Glucose, Blood 305 mg/dL (70-99); Potassium, Blood 5.2 mmol/L (3.5-5.5); Sodium, Blood 145 mmol/L (136-145); Vancomycin, Random 17.7 ug/mL
[2019-12-07 04:53] LABS: International Normalized Ratio 1.12; Prothrombin Time Results 11.9 Sec (9.7-11.5)
--- NOTE | 2019-12-07 08:00 | NUR ---
INITIAL ASSESSMENT PATIENT INTUBATED AND ON LIGHT SEDATION. PROPOFOL AT 20 MCG/ KG/ MINUTE. PATIENT RESPONDING TO PAINFUL STIMULI BY WIGGLING FEET AND FACIAL GRIMACING. NO MOVEMENT NOTED TO BUES. PERIORBITAL EDEMA NOTED. NO SIGNS OF PAIN NOTED. PATIENT HAS CORE TEMP OF 100.7 DEGREES FAHRENHEIT. LEFT LOWER LUNG LOBE DIMINISHED. ALL OTHER LUNG LOBES CLEAR TO AUSCULTATION. MODERATE AMOUNT OF THICK, PALE YELLOW SPUTUM BEING SUCTIONED FROM ETT. PATIENT SATTING 90% AND GREATER ON VENT SETTINGS OF AC 16, TV 400, PEEP5, 25% FIO2. PATIENT IN SR, HR IN THE 90S. MURMUR NOTED. BP STABLE ON LEVOPHED DRIP AT 10 MCG/ MINUTE. PULSES FAINT. SCDS IN PLACE. ABDOMEN MILDLY DISTENDED, SOFT, WITH NORMOACTIVE BS. OG TO LIS. LAST BM DOCUMENTED ON THE . TEMP PROBE DOUGLAS IN PLACE DRAINING YELLOW COLORED URINE. ER NOTES STATE THAT PATIENT HAD PURULENT VAGINAL DISCHARGE- CULTURE OBTAINED IN ER. 1+ EDEMA NOTED TO BUES. TRACE EDEMA NOTED TO BLES. MANY SCATTERED BRUISES AND ABRASIONS THROUGHOUT BODY. INSULIN DRIP AT 9 UNITS/ HOUR, NS TKO. BED LOW, CALL LIGHT IN REACH. WILL CONTINUE TO MONITOR PATIENT FREQUENTLY THROUGHOUT SHIFT.
[2019-12-07 09:28] LABS: Base Excess Venous -2.8 mmol/L; Bicarbonate Venous 22.4 mmol/L (24.0-30.0); PCO2 Venous 31.5 mmHg (38-42); pH Blood Venous 7.44 (7.34-7.37)
--- NOTE | 2019-12-07 10:32 | NUR ---
DR. ORTIZ IN ROOM TO EVALUATE PATIENT AFTER SEDATION HAS BEEN OFF FOR AROUND 40 MINUTES. PATIENT RESPONDING TO PAINFUL STIMULI. PATIENT RHYTHMICALLY MOVING R HAND UP AND DOWN. PATIENT IS NOT FOLLOWING ANY COMMANDS AT THIS TIME.
--- NOTE | 2019-12-07 12:15 | NUR ---
PATIENT OFF SEDATION. PATIENT REMAINS RESPONDING TO PAINFUL STIMULI. PATIENT MOVING R HAND UP AND DOWN RHYMICALLY WITHOUT PURPOSE. PATIENT HAS TEMP OF 100.7 DEGREES FAHRENHEIT. PATIENT REMAINS SATTING 90% AND GREATER ON SAME VENT SETTINGS. PATIENT IN SR TO ST, HR 90S TO LOW 100S. BLOOD SUGAR OF 213; COVERAGE GIVEN. SEDIMENT NOTED IN URINE. INSULIN DRIP DC'D. LEVOPHED AT 10 MCG/ MINUTE, PROP ON SB. NO OTHER ACUTE CHANGES TO NOTE ON AT THIS TIME. NO SIGNS OF PAIN OR DISCOMFORT. WILL CONTINUE TO MONITOR.
--- NOTE | 2019-12-07 16:15 | NUR ---
PATIENT RESTING QUIETLY IN BED. PATIENT REMAINS OFF OF SEDATION. PATIENT HAS CORE TEMP OF 99.8 DEGREES FAHRENHEIT. NO CHANGE IN NEURO STATUS. PATIENT REMAINS SATTING 90% AND GREATER ON SAME VENT SETTINGS. PATIENT IN SR TO ST, HR 80S TO LOW 100S. BP STABLE ON LEVOPHED AT 3 MCG/ MINUTE. TF INFUSING AT 15 MLS/ HOUR. RESIDUAL OF 10 MLS OBTAINED AND REINSTILLED. PATIENT HAD SMALL, LOOSE BM. BILAT BREAST WOUNDS CLEANSED, ANTIBIOTIC OINTMENT APPLIED AND NEW DRESSINGS PLACED. NO OTHER ACUTE CHANGES TO NOTE ON AT THIS TIME. NO SIGNS OF PAIN NOTED. WILL CONTINUE TO MONITOR.
[2019-12-07 16:36] LABS: RBC Count, CSF 3 /mm3 (0-0); WBC Count, CSF 2 /mm3 (0-5)
[2019-12-07 16:37] LABS: Appearance, CSF Clear (Clear); Color, CSF No Color (No Color)
[2019-12-07 16:45] LABS: Glucose, CSF 181 mg/dL (40-70)
[2019-12-07 17:06] LABS: Lymphocytes, CSF 55 % (40-80); Monocytes, CSF 40 % (15-45); Neutrophils, CSF 5 % (0-6)
--- NOTE | 2019-12-07 17:35 | NUR ---
SHIFT SUMMARY PATIENT REMAINED INTUBATED. PATIENT SEDATED AT THE BEGINNING OF SHIFT AND DURING LUMBAR PUNCTURE, OTHERWISE PROPOFOL ON STANDBY. PATIENT CONTINUED TO RESPOND TO PAINFUL STIMULI WITH GRIMACING AND MOVEMENT OF FEET. NO MOVEMENT OF ARMS/ HANDS TO PAINFUL STIMULI, EXCEPT RHYTHMIC MOVEMENT OF R HAND UP AND DOWN THAT CONTINUED THE WHOLE TIME SEDATION WAS OFF. PATIENT HAD TMAX OF 100.7 DEGREES FAHRENHEIT. PATIENT HAD NO SIGNS OF PAIN OR DISCOMFORT DURING SHIFT. PATIENT REMAINED SATTING 90% AND GREATER ON VENT SETTINGS OF AC 16, TV 400, PEEP 5, AND 25% FIO2. UPPER LOBES CLEAR AND LOWER LOBES DIM THROUGHOUT SHIFT. CONTINUED TO SUCTION MODERATE AMOUNT OF LIGHT YELLOW SPUTUM FROM ETT. PATIENT REMAINED IN SR TO ST, HR 80S TO LOW 100S. BP STABLE ON LEVOPHED DRIP. PATIENT ON 9 MCG/ MINUTE OF LEVO AT BEGINNING OF SHIFT AND LEVO IS CURRENTLY ON STANDBY. PULSES REMAINED FAINT. SCDS REMAIN IN PLACE. PATIENT HAD A SMALL, LOOSE BM THIS SHIFT. OG FROM LIS TO TF- PIVOT 1.5 IMMUNE. TF CURRENTLY INFUSING AT 15 MLS/ HOUR AND CAN BE INCREASED AT 0000 IF CONTINUES TO TOLERATE WELL. RESIDUAL 10 CC THIS SHIFT. DOUGLAS REMAINED DRAINING ADEQUATE AMOUNT OF YELLOW COLORED URINE WITH SEDIMENT NOTED. PATIENT NOTED TO HAVE PURULENT VAGINAL DISCHARGE IN ER- CULTURE WAS SENT TO LAB. NO CHANGE TO SKIN. PATIENT REPOSITIONED THROUGHOUT SHIFT. WOUNDS ON BREASTS CLEANSED, ANTIBIOTIC OINTMENT APPLIED AND NEW DRESSINGS PLACED. INSULIN DRIP DC'D THIS SHIFT AND PATIENT STARTED ON LONG AND FAST ACTING INSULIN. BLOOD SUGARS RANGED FROM 165 TOO 213. PATIENT HAD ABDOMINAL AND PELVIC CT THIS SHIFT. PATIENT ALSO HAD LUMBAR PUNCTURE. PATIENT'S NORMA AND DAUGHTER BOTH CALLED TO CHECK UP ON PATIENT. NORMA STOPPED BY. PATIENT'S DAUGHTER STATED THAT SHE WOULD BE HERE THIS AFTERNOON FROM [place]. BED LOW, CALL LIGHT IN REACH. WILL CONTINUE TO MONITOR PATIENT FREQUENTLY UNTIL REPORT GIVEN TO ONCOMING TEACHER LIP READING NURSE SHORTLY.
[2019-12-07 17:47] LABS: Cryptococcus Neoformans/Gattii Not Detected (NOT DETECT); Enterovirus Not Detected (NOT DETECT); Escherichia Coli K1 Not Detected (NOT DETECT); Haemophilus Influenza Not Detected (NOT DETECT); Herpes Simplex Virus 1 Not Detected (NOT DETECT); Herpes Simplex Virus 2 Not Detected (NOT DETECT); Human Herpesvirus 6 Not Detected (NOT DETECT); Human Parechovirus Not Detected (NOT DETECT); Listeria Monocytogenes Not Detected (NOT DETECT); Neisseria Meningitidis Not Detected (NOT DETECT); Streptococcus Agalactiae Not Detected (NOT DETECT); Streptococcus Pneumoniae Not Detected (NOT DETECT); Varicella Zoster Virus Not Detected (NOT DETECT)
--- NOTE | 2019-12-07 19:15 | NUR ---
ASSUMED CARE BEDSIDE REPORT RECIEVED. PT IS RESTING IN BED, INTUBATED, NOT SEDATED. PT IS NOT MAKING PURPOSEFUL MOVEMENTS. PT WITH GAG AND COUGH PRESENT. OCCASIONAL TWITCHING NOTED TO RIGHT UPPER EXTREMITY. VENT AC 16, TV 400, PEEP 5, FIO2 25%. CL TO L FEMORAL IN PLACE WITH NS TKO, SAFE SET, AND LEVOPHED INFUSING AT 1 MCG/MIN. LEVOPHED PUT ON STANDBY AT THIS TIME. DOUGLAS IN PLACE. OGT IN PLACE WITH TF INFUSING. SBW RESTRAINTS IN PLACE. PT WITH MULTIPLE SCABS/ABRASIONS AND WOUNDS. SEE PHOTOS IN CHART. NO FAMILY AT BEDSIDE. WILL CONTINUE TO MONITOR.
[2019-12-08 03:44] LABS: BASOPHILS ABSOLUTE AUTO 0.05 K/mm3 (0.00-0.23); BASOPHILS PERCENT AUTO 0 % (0-2); Hemoglobin 9.5 g/dL (11.5-16.0); LYMPHOCYTES ABSOLUTE AUTO 2.66 K/mm3 (0.84-5.20); LYMPHOCYTES PERCENT AUTO 17 % (21-46); MONOCYTES PERCENT AUTO 6 % (4-13); Mean Corpuscular HGB 28.7 pg (26.0-34.0); Mean Corpuscular HGB Conc 33.9 g/dL (31.5-36.5); Mean Corpuscular Volume 85 fL (80-100); Platelet Count 143 K/mm3 (150-400); RDW Coefficient Variation 14.8 % (11.7-14.2); RDW Standard Deviation 45.1 fL (35.1-46.3); Red Blood Cell Count 3.31 M/mm3 (3.80-5.20); White Blood Cell Count 16.01 K/mm3 (4.00-11.30)
[2019-12-08 03:51] LABS: EOSINOPHILS ABSOLUTE AUTO 0.04 K/mm3 (0.00-0.68); EOSINOPHILS PERCENT AUTO 0 % (0-6); IMMATURE GRAN ABSOLUTE AUTO 0.45 K/mm3 (0.00-0.10); IMMATURE GRAN PERCENT AUTO 3 % (0-1); Mean Platelet Volume 13.6 fL (9.1-12.4); NEUTROPHILS ABSOLUTE AUTO 11.91 K/mm3 (1.96-9.15); NEUTROPHILS PERCENT AUTO 75 % (41-73)
[2019-12-08 03:59] LABS: Bun/Creatinine Ratio 39.2 (12.0-20.0); Calcium, Blood 7.4 mg/dL (8.5-10.1); Creatinine, Blood 1.3 mg/dL (0.40-1.00); Magnesium, Blood 1.9 mg/dL (1.6-2.4); Phosphorus, Blood 1.7 mg/dL (2.5-4.9); Potassium, Blood 4.1 mmol/L (3.5-5.5)
--- NOTE | 2019-12-08 05:25 | NUR ---
SHIFT SUMMARY PT HAS REMAINED INTUBATED WITHOUT SEDATION THIS SHIFT. PT UNABLE TO FOLLOW COMMANDS OR MAKE PURPOSFUL MOVEMENTS. PT OCCASIONALLY OPENS EYES SPONTANEOUSLY, BUT DOES NOT TRACK OR RESPOND TO VERBAL STIMULI. PT WITH GAG AND COUGH PRESENT WITH ORAL CARE. VENT SETTINGS AC 16, TV 400, PEEP 5, FIO2 25%. PT WITH GOOD RESPIRATORY EFFORT WHEN ON SPONTANEOUS FOR BREIF TIME THIS AM. PT BP HAS BEEN LABILE THROUGHOUT THE SHIFT WITH LEVOPHED TITRATED BETWEEN STANDBY AND 6 MCG/MIN. OGT IN PLACE WITH TF AT 25 ML/HR, NO RESIDUALS NOTED. DOUGLAS REMAINS IN PLACE WITH CLOUDY YELLOW OUTPUT NOTED. RECTAL TUBE IN PLACE WITH LIQUID BROWN OUTPUT NOTED. SBW RESTRAINTS IN PLACE. CL TO L FEMORAL C/D/I. WILL CONTINUE TO MONITOR AND REPORT OFF TO ONCOMING RN.
--- NOTE | 2019-12-08 07:00 | NUR ---
REC'D BEDSIDE REPORT FROM JR OSMAN AND AM NOW ASSUMING CARE OF THIS PT.
--- NOTE | 2019-12-08 09:17 | NUR ---
DR RIBEIRO IN TO ASSESS PT. DISCUSSED PT'S CURRENT STATUS, LOW PHOSPHEROUS LEVEL AND CONTINUED PLAN OF CARE. SEE NEW ORDERS.
--- NOTE | 2019-12-08 13:14 | NUR ---
PT UPDATE: PT SEEMS TO BE MORE AWARE, SHE IS NOW OPENING EYES TO VOICE. HOWEVER, NO FOCUSING/TRACKING. PT AT TIMES HAS RHYTHMIC MOVEMENT OF THE RT INDEX FINGER. PT DOES LOCALIZE PAIN, SLOWER ON RT UE IN COMPARION TO OTHER PERIPHERAL LIMBS. NOT ABLE TO FOLLOW COMMANDS. PT STARTED DOUBLE STACKING BREATHES. PROPOFOL RESTARTED AT 20MCG/KG/MIN.
--- NOTE | 2019-12-08 16:43 | NUR ---
SHIFT SUMMARY: PT REMAINS INTUBATED AND SEDATED ON PROPOFOL @ 10MCG/KG/MIN. PT WILL AT TIMES SPONTANEOUSLY OPEN EYES AND WILL AT TIMES OPEN EYES TO VERBAL STIMULI. NO TRACKING AND UNABLE TO FOLLOW ANY COMMANDS. PT IS ABLE TO LOCALIZE NOXIOUS STIMULI, WHICH IS SLOW ON THE RT UE. LUNGS REMAIN CLEAR BUT DIMINISHED IN THE BILATERAL BASES. 02 SATS >90% ON UNCHANGED VENT SETTINGS FOLLOWS: AC-16, TV-400, P-5, FI02-25%. HR REGULAR, SR 80-90'S RANGE. POWERGLIDE PLACED IN THE RT UA, IN ANTICIPATION OF REMOVING RT FEMORAL LINE (R/O REASONS FOR LEUKOCYTOSIS). PT ABLE TO REMAIN OF LEVOPHED T/O MOST THE SHIFT AND MAPS MAINTAINED >65. ABD SOFT/ROUND/NO GRIMACE TO PALPATION. BT'S ACTIVE X4 QUADS. RECTAL TUBE IN PLACE DRAINING LIQUID BROWN STOOL. PIVOT 1.5 AT GOAL RATE 35ML/HR AND TOLERATING WELL. RULED PT OUT FOR CDIFF.
--- NOTE | 2019-12-08 18:24 | NUR ---
CENTRLA LINE REMOVED FROM LT FEMORAL. SITE REMAINS SOFT/NO BLEEDING/HEMATOMA AT THIS TIME.
[2019-12-09 04:20] LABS: Hematocrit 27.3 % (33.0-51.0); Hemoglobin 8.7 g/dL (11.5-16.0); Mean Corpuscular HGB 28.2 pg (26.0-34.0); Mean Corpuscular HGB Conc 31.9 g/dL (31.5-36.5); NRBC ABSOLUTE 0.03 K/mm3 (0.00-0.02); NRBC Auto 0.3 /100 WBC (0.0-0.2); Platelet Count 109 K/mm3 (150-400); RDW Coefficient Variation 15.4 % (11.7-14.2); RDW Standard Deviation 49.3 fL (35.1-46.3); Red Blood Cell Count 3.08 M/mm3 (3.80-5.20)
[2019-12-09 04:22] LABS: Mean Corpuscular Volume 89 fL (80-100); Mean Platelet Volume 13.4 fL (9.1-12.4)
[2019-12-09 04:35] LABS: Bun/Creatinine Ratio 38.3 (12.0-20.0); Calcium, Blood 7.5 mg/dL (8.5-10.1); Creatinine, Blood 1.07 mg/dL (0.40-1.00); Magnesium, Blood 1.9 mg/dL (1.6-2.4); Phosphorus, Blood 3.4 mg/dL (2.5-4.9); Potassium, Blood 4.2 mmol/L (3.5-5.5)
[2019-12-09 05:02] LABS: BAND PERCENT MAN 14 % (0-8); BASOPHILS PERCENT MAN 0 % (0-2); EOSINOPHILS ABSOLUTE MAN 0.32 K/mm3 (0.00-0.68); EOSINOPHILS PERCENT MAN 3 % (0-6); LYMPHOCYTES ABSOLUTE MAN 1.96 K/mm3 (0.84-5.20); LYMPHOCYTES PERCENT MAN 18 % (21-46); MONOCYTES ABSOLUTE MAN 0.76 K/mm3 (0.16-1.47); MONOCYTES PERCENT MAN 7 % (4-13); MYELOCYTE PERCENT MAN 1 % (0-0); NEUTROPHILS ABSOLUTE MAN 7.73 K/mm3 (1.96-9.15); SEG NEUTROPHILS PERCENT MAN 57 % (41-73); TOTAL CELLS COUNTED 100
--- NOTE | 2019-12-09 06:52 | NUR ---
SHIFT SUMMARY PATIENT DID WELL THROUGH NIGHT. ATTEMPTED TO DECREASE PROPOFOL DRIP TO ASSESS NEUROLOGICAL STATUS, STILL DOES NOT FOLLOW COMMANDS, HOWEVER SOME NON-PURPOSEFUL MOVEMENT IN ALL 4 EXTREMETIES, PERRLA. BATHED ON MY SHIFT. PLACED 2 NEW IVs, ALL 3 OLD ONES WENT BAD THROUGH SHIFT. VSS. ASSESSMENT IS CHARTED. WILL CONTINUE TO MONITOR.
[2019-12-09 08:58] LABS: Vancomycin, Trough 18.2 ug/mL (5.0-10.0)
--- NOTE | 2019-12-09 09:20 | NUR ---
CARE ASSUMED CARE AND REPORT ASSUMED FROM CRIS NORRIS. PT INTUBATED AND SEDATED AT THIS TIME. VENT AC 16, 400, PEEP 5, FIO2 25%. LUNG SOUNDS CORASE WITH RALES THROUGHOUT; DIM IN BASES. PROPOFOL GTT INFUSING AT 15 MCG/KG/MIN. SEDATION VACATION FOR 45 MINUTES. DURING THIS TIME, PT WAS WITHDRAWING FEET AND HANDS TO STIMULI BUT UNABLE TO FOLLOW COMMANDS AND UNABLE TO TRACK WITH EYES. PUPILS EQUAL BUT L IS SLUGGISH, WHILE R IS BRISK. REMAINS IN BUE. GENERALIZED PITTING EDEMA IN ALL EXTREMITIES. DOUGLAS CATH AND RECTAL TUBE SECURE AND PATENT. NSR, HR 70S. BP WNL. ANBX INFUSING. TOLERATING TF AT GOAL RATE, 35 ML/HR WITH NO RESIDUAL. HOB ELEVATED. WILL CONTINUE TO MONITOR.
--- NOTE | 2019-12-09 09:56 | NUR ---
UPDATE DAUGHTER BEDSIDE AND UPDATED BY MD ORTIZ. PT OFF SEDATION AT 0950.
--- NOTE | 2019-12-09 12:23 | NUR ---
REASSESSMENT PT REMAINS INTUBATED. SEDATION OFF SINCE 1000. REMAINS IN NSR, HR 70-80S. LUNG SOUNDS IMPROVED AND NOW CLEAR THROUGHOUT. NO CHANGES IN VENT SETTINGS; AC 16, 400, 5, FIO2 25%. DAUGHTER AT BEDSIDE. PT REMAINS UNRESPONSIVE BUT DOES MOVE EXTREMITIES TO PAINFUL STIMULATION. BILAT EYE MOVEMENT NYSTAGMUS. CONTINUES TO TOLERATE TF AT GOAL RATE. BP SLIGHTLY ELEVATED; WILL MONITOR AND MEDICATE IF NEEDED. AWAITING CT SCAN. WILL CONTINUE TO MONITOR.
--- NOTE | 2019-12-09 17:15 | NUR ---
REASSESSMENT PT REMAINS INTUBATED WITHOUT SEDATION. SHE IS ABLE TO NOD HEAD YES OR NO VERY MINIMALLY. NO CHANGES IN VENT SETTINGS. LUNG SOUNDS CLEAR ON L SIDE AND COARSE ON RIGHT SIDE. PT TAKEN TO CT FOR REPEAT HEAD CT; TOLERATED TRIP WELL. DAUGHTER UPDATED AT BEDSIDE BY MD ORTIZ. TOLERATING TF AT GOAL RATE. WILL CONTINUE TO MONITOR.
--- NOTE | 2019-12-09 18:20 | NUR ---
SHIFT SUMMARY SEDATION OFF SINCE 1000 TODAY. PT HAS REMAINED ON VENT AC 16, TV 400, PEEP 5, FIO2 25% ENTIRE SHIFT. EYES HAVE HAD NYSTAGMUS T/O SHIFT. PT WENT FOR REPEAT HEAD CT; SEE RESULTS. HAS BEEN ABLE TO NOD HEAD YES/NO THIS AFTERNOON. HOB ELEVATED AND PT TURNED Q2H. HAS REMAINED IN BUE RESTRAINTS ENTIRE SHIFT. 400 ML OUT FROM RECTAL TUBE. 550 ML URINE OUTPUT FROM DOUGLAS CATH. WILL GIVE BEDSIDE, HANDOFF REPORT TO DENIS NORRIS.
--- NOTE | 2019-12-09 18:27 | NUR ---
Patient's daugher was present and authorized nursing education consultant to provide care.
--- NOTE | 2019-12-09 20:07 | NUR ---
ASSUMED CARE OF PT AT 1915. REPORT RECEIVED AT BEDSIDE. PT PRESENTS IN BED. VENTED. SETTINGS CHECKED AND VERIFIED WITH OFFGOING NURSE. PT DOES NOT FOLLOW ANY COMMANDS AT THIS TIME. DOES HAVE REFLEX MOTION TO STIMULI. PT IN NO APPARENT DISTRESS AT THIS TIME. WILL REVIEW CHART AND PLAN OF CARE FOR THIS PT. HAVE DISCUSSED WITH RESPIRATORY THERAPY PLAN FOR THIS NIGHT.
--- NOTE | 2019-12-09 23:25 | NUR ---
PT RECEIVES FULL BEDBATH WITH LINEN CHANGES. DURING THIS TIME, PT WOULD NOD HER HEAD 'YES' AND 'NO' TO SIMPLE QUESTIONS. DOES NOT SQUEEZE FINGERS. DIGNISHIELD REMAINS INTACT AND PATENT. WILL CONTINUE TO MONITOR PT. CONTINUES OFF SEDATION. WILL ATTEMPT WEAN IN AM.
[2019-12-10 04:49] LABS: BASOPHILS ABSOLUTE AUTO 0.04 K/mm3 (0.00-0.23); BASOPHILS PERCENT AUTO 1 % (0-2); EOSINOPHILS ABSOLUTE AUTO 0.17 K/mm3 (0.00-0.68); EOSINOPHILS PERCENT AUTO 2 % (0-6); Hematocrit 27.5 % (33.0-51.0); Hemoglobin 8.9 g/dL (11.5-16.0); IMMATURE GRAN ABSOLUTE AUTO 0.21 K/mm3 (0.00-0.10); IMMATURE GRAN PERCENT AUTO 2 % (0-1); LYMPHOCYTES ABSOLUTE AUTO 2.24 K/mm3 (0.84-5.20); LYMPHOCYTES PERCENT AUTO 26 % (21-46); MONOCYTES PERCENT AUTO 12 % (4-13); Mean Corpuscular HGB 28.3 pg (26.0-34.0); Mean Corpuscular HGB Conc 32.4 g/dL (31.5-36.5); Mean Corpuscular Volume 88 fL (80-100); Mean Platelet Volume 13.7 fL (9.1-12.4); NEUTROPHILS ABSOLUTE AUTO 4.95 K/mm3 (1.96-9.15); NEUTROPHILS PERCENT AUTO 58 % (41-73); NRBC ABSOLUTE 0.02 K/mm3 (0.00-0.02); NRBC Auto 0.2 /100 WBC (0.0-0.2); Platelet Count 100 K/mm3 (150-400); RDW Coefficient Variation 14.7 % (11.7-14.2); RDW Standard Deviation 47.4 fL (35.1-46.3); Red Blood Cell Count 3.14 M/mm3 (3.80-5.20); White Blood Cell Count 8.61 K/mm3 (4.00-11.30)
[2019-12-10 05:03] LABS: Anion Gap 5 mmol/L (6-16); Blood Urea Nitrogen 37 mg/dL (8-24); Bun/Creatinine Ratio 39.5 (12.0-20.0); CO2, Blood 23 mmol/L (21-32); Calcium, Blood 7.6 mg/dL (8.5-10.1); Chloride, Blood 119 mmol/L (98-108); Creatinine, Blood 0.94 mg/dL (0.40-1.00); Glomerular Filtration Rate >60 (60-); Glucose, Blood 220 mg/dL (70-99); Magnesium, Blood 1.9 mg/dL (1.6-2.4); Phosphorus, Blood 2.5 mg/dL (2.5-4.9); Potassium, Blood 4.2 mmol/L (3.5-5.5); Sodium, Blood 147 mmol/L (136-145)
--- NOTE | 2019-12-10 05:59 | NUR ---
PT HAS BEEN ABLE TO MAINTAIN WITHOUT SEDATION THIS SHIFT. HAS TOLERATED Q 2 HOUR TURNS IN BED. MAKES EYE CONTACT AND TRACKS. THIS AM DID WEAN TRIAL WHICH PT DID REMARKABLY WELL. PT CONTINUES ON PRESSURE SUPPORT. MAINTAINS > 90 PERCENT SATURATIONS. IS ABLE TO SQUEEZE WITH RIGHT HAND. NO RESPONSE FROM LEFT HAND. WILL CONTINUE TO MONITOR PT'S ABILITY TO REMAIN ON PRESSURE SUPPORT. WILL REPORT OFF TO ONCOMING RN.
--- NOTE | 2019-12-10 08:00 | NUR ---
ASSUMED CARE OF PATIENT; SEE ASSESSMENT CHARTING FOR DETAILS. PATIENTS EYES OPENED WHEN DAYSHIFT AND NIGHTSHIFT WALKED INTO ROOM FOR REPORT. RN ASKED QUESTIONS AND PATIENT NODDED HEAD APPROPRIATLEY. CURRENTLY SLEEPING BUT WILL OPEN EYES TO VERBAL COMMAND. SLEEPING WHEN NOT DISTURBED. VSS AND MONITOR REMAINS NSR WITHOUT NOTED ECTOPY. LUNGS CLEAR IN UPPER AIRWAYS, AFTER SUCTIONING; A FEW INTERMITTENT WHEEZES. DIMINISHED IN BASES. SIMV SETTINGS: P/S 7, TV 400, PEEP 5 AND FIO2 25%. SUCTIONING MODERATED CREAMY SPUTUM. NO SEDATION REQUIRED. DOUGLAS CATH. TO GRAVITY DRAINAGE; MODERATE OUTPUT. RECTAL TUBE TO GRAVITY DRAINAGE; BROWN LIQUID; SMALL AMOUNT. OGT INFUSING WITH PIVOT 1.5 AT 35ML/HR (GOAL); ALSO RECEIVING WATER 250ML EVERY 6 HRS TO HELP REDUCE NA+ LEVEL. REMAINS WITH LOWGRADE FEVER; AVERAGING 100.0 DEGREES PER DOUGLAS TEMP PROBE.
--- NOTE | 2019-12-10 11:00 | NUR ---
DR. HANNA ROUNDING; SEE ORDERS. NO NOTED VENT. ADJUSTMENTS.
[2019-12-10 11:21] LABS: Antinuclear Antibody Screen Positive (Negative)
--- NOTE | 2019-12-10 12:15 | NUR ---
PATIENTS DAUGHTER HERE; RN UPDATED ON PATIENTS' CURRENT STATUS AND ANSWERED QUESTIONS. DR. CALDERA SUPPORTINE; QUIET IN ROOM.
--- NOTE | 2019-12-10 17:01 | NUR ---
SUMMARY: NO VENT. CHANGES; REMAINS ON P/S OF 7, TV 400, PEEP 5 AND FIO2 25%. SUCTIONING MOD. SECRETIONS AFTER TURNING OR DOING ORAL CARE. DRESSING IN PLACE TO BILAT. BREASTS (NO DRAINAGE NOTED); ABRASIONS/BRUISES TO VARIOUS AREAS UNCHANGED. REMAINS IN BILAT. SOFT WRIST RESTRAINTS TO PREVENT POTENTIAL SELF EXTUBATION OR PULLING OF OTHER IMPORTANT LINES. ABLE TO MOVE ALL EXTREMITIES EXCEPT L WRIST/ARM. HANDS AND FEET SWOLLEN; ELEVATED ON PILLOWS. I/O REASONABLE. TOLERATING TUBE FEEDINGS WITHOUT GI UPSET AND ACTIVE BOWEL TONES; ABD. SOFT AND NON-TENDER. DOUGLAS DRAINING FAIR AMOUNTS OF MED. YELLOW URINE. RECTAL TUBE CONT. TO WORK WELL; BAG CHANGED. OVERALL STATUS IMPROVED.
--- NOTE | 2019-12-10 20:19 | NUR ---
PT INTUBATED. NO SEDATION. ON PRESSURE SUPPORT SETTINGS. ABLE TO OPEN EYE'S ON COMMAND AND TRACK. HAS WEAK PLASTIC EYE TECHNICIAN WITH R HAND. CANNOT FOLLOW COMMANDS WITH L HAND. CAN WIGGLE TOES BILAT ON COMMAND. ABLE TO SHAKE HEAD YES OR NO APPROPRIATELY. SHAKES HEAD NO TO PAIN. TOLERATING TUBE FEED WITH LESS THAN 10ML RESIDUAL. SEE ASSESSMENT. NO SIGN OF DISTRESS.
[2019-12-11 05:31] LABS: Bicarbonate Venous 24.1 mmol/L (24.0-30.0); PCO2 Venous 28.1 mmHg (38-42); PO2 Venous 162 mmHg (38-42)
[2019-12-11 05:36] LABS: BASOPHILS ABSOLUTE AUTO 0.02 K/mm3 (0.00-0.23); BASOPHILS PERCENT AUTO 0 % (0-2); EOSINOPHILS ABSOLUTE AUTO 0.18 K/mm3 (0.00-0.68); EOSINOPHILS PERCENT AUTO 2 % (0-6); Hematocrit 26.7 % (33.0-51.0); Hemoglobin 8.4 g/dL (11.5-16.0); IMMATURE GRAN ABSOLUTE AUTO 0.22 K/mm3 (0.00-0.10); IMMATURE GRAN PERCENT AUTO 2 % (0-1); LYMPHOCYTES ABSOLUTE AUTO 1.82 K/mm3 (0.84-5.20); LYMPHOCYTES PERCENT AUTO 20 % (21-46); MONOCYTES ABSOLUTE AUTO 0.95 K/mm3 (0.16-1.47); MONOCYTES PERCENT AUTO 10 % (4-13); Mean Corpuscular HGB 28.3 pg (26.0-34.0); Mean Corpuscular HGB Conc 31.5 g/dL (31.5-36.5); Mean Corpuscular Volume 90 fL (80-100); NEUTROPHILS ABSOLUTE AUTO 6.12 K/mm3 (1.96-9.15); NEUTROPHILS PERCENT AUTO 66 % (41-73); NRBC ABSOLUTE 0.02 K/mm3 (0.00-0.02); NRBC Auto 0.2 /100 WBC (0.0-0.2); Platelet Count 91 K/mm3 (150-400); RDW Coefficient Variation 14.4 % (11.7-14.2); RDW Standard Deviation 46.9 fL (35.1-46.3); Red Blood Cell Count 2.97 M/mm3 (3.80-5.20); White Blood Cell Count 9.31 K/mm3 (4.00-11.30)
[2019-12-11 05:39] LABS: Mean Platelet Volume 13.9 fL (9.1-12.4)
--- NOTE | 2019-12-11 05:59 | NUR ---
SUMMARY PT INTUBATED. NO SEDATION. HAS BEEN ABLE TO OPEN EYE'S TO COMMAND, FACILITIES MAINTENANCE ASSISTANT WITH R HAND, AND WIGGLE TOES ON COMMAND. PT IS ABLE TO HELP LIFT R ARM NOW WELL BUT IS STILL WEAK. TOLERATING TUBE FEED WITH LESS THAN 10ML OF RESIDUAL WITH EACH CHECK. RECTAL TUBE PUT OUT 150ML OF LIQUID BROWN STOOL. NO SIGN OF DISTRESS THIS AM.
[2019-12-11 06:04] LABS: Anion Gap 6 mmol/L (6-16); Blood Urea Nitrogen 33 mg/dL (8-24); Bun/Creatinine Ratio 44.1 (12.0-20.0); CO2, Blood 22 mmol/L (21-32); Chloride, Blood 117 mmol/L (98-108); Creatinine, Blood 0.75 mg/dL (0.40-1.00); Glomerular Filtration Rate >60 (60-); Glucose, Blood 265 mg/dL (70-99); Potassium, Blood 4.2 mmol/L (3.5-5.5); Sodium, Blood 145 mmol/L (136-145)
--- NOTE | 2019-12-11 06:15 | NUR ---
CALLED DR. HANNA ABOUT VBG RESULTS. NEW ORDERS TO TURN PRESSURE SUPPORT DOWN TO 5. RT NOTIFIED.
--- NOTE | 2019-12-11 08:30 | NUR ---
CARE ASSUMED REPORT RECEIVED, CARE ASSUMED AT 0700 FROM JR MCDOWELL. PT INTUBATED. NO SEDATION AT THIS TIME. PT OPENS EYES SPONTANEOUSLY, FOLLOWS DIRECTIONS. BILATERAL WRIST RESTRAINTS IN PLACE. LEFT SIDE FLACCID. RIGHT SIDE WEAK. SEE FULL SHIFT ASSESSMENT. PT ON PRESSURE SUPPORT, TOLERATING WITH STABLE OXYGEN SATURATIONS AND RESPIRATORY RATE. TUBE FEED PER ORDERS. RECTAL TUBE IN PLACE AND DRAINING BROWN LIQUID. DOUGLAS SECURED AND DRAINING. VITALS STABLE. SEE FLOWSHEET.
--- NOTE | 2019-12-11 18:32 | NUR ---
SUMMARY VITALS STABLE THROUGHOUT SHIFT. NEURO ASSESSMENTS UNCHANGED. PT CONSISTENTLY OPENS EYES, ANSWERS YES/NO QUESTIONS, AND FOLLOWS DIRECTIONS USING RIGHT SIDE. PT HAS DENIED PAIN/DISCOMFORT THROUGHOUT DAY. PT'S DAUGHTER AT BEDSIDE MAJORITY OF AFTERNOON. PT'S BIGGEST CONCERN IS HER EXTREMELY FRAGILE SKIN. AFTER TWO HOURS IN ONE POSITION REDNESS NOTED AT AREAS OF CORDS/LINES. OXYGEN PROBE SITE, DOUGLAS CATHETER, RECTAL TUBE, AND CENTRAL LINE ENDS REPOSITIONED WITH EVERY TURN TO PREVENT BREAKDOWN. PT ALSO PROVIDED WITH SKIN CARE FREQUENTLY THROUGHOUT DAY. NO ACUTE CHANGES TO WOUNDS FROM FALL. ALL DRESSINGS HAVE REMAINED CLEAN, DRY AND IN TACT. PT TOLERATING TUBE FEEDS WITH MINIMAL RESIDUALS. RECTAL TUBE CONTINUES TO DRAIN LIQUID BROWN STOOL, BUT OUTPUT AMOUNT IS GRADUALLY DECREASING. DOUGLAS DRAINS CLEAR/YELLOW URINE. SEE REPEAT ASSESSMENTS/FLOWSHEETS.
--- NOTE | 2019-12-11 19:31 | NUR ---
REPORT TO JR MCDOWELL TO ASSUME CARE
--- NOTE | 2019-12-11 20:30 | NUR ---
PT INTUBATED. NO SEDATION. PT CAN CONTENT COORDINATOR WITH R HAND AND MOVE R FOOT ON COMMAND. L SIDE REMAINS FLACCID. WEAK T/O. PT CAN NOD HEAD YES OR NO TO QUESTIONS APPROPRIATELY WELL.SEE ASSESSMENT.
--- NOTE | 2019-12-12 06:13 | NUR ---
SUMMARY PT REMAINS INTUBATED WITH NO SEDATION. WILL SHEARING SHED WORKER WITH R HAND AND MOVE R FOOT ON COMMAND. L SIDE REMAINS FLACCID. PT ABLE TO NOD YES OR NO TO QUESTIONS APPROPRIATELY. REMAINS ON PRESSURE SUPPORT. NO ACUTE CHANGES THIS SHIFT.
[2019-12-12 07:07] LABS: COMPLEMENT C3, SERUM 91 mg/dL (82-167); COMPLEMENT C4, SERUM 31 mg/dL (14-44)
--- NOTE | 2019-12-12 11:01 | NUR ---
CARE ASSUMED BEDSIDE REPORT RECEIVED, CARE ASSUMED AT 0700 FROM JR MCDOWELL. PT CONTINUES TO BE INTUBATED WITH NO SEDATION. FOLLOWS COMMANDS ON RIGHT SIDE, LEFT SIDE FLACCID. ANSWERS YES/NO QUESTIONS. DOUGLAS CONTINUES TO DRAIN CLEAR, YELLOW URINE. RECTAL TUBE WITH LIQUID BROWN STOOL. PT'S BED POSITIONED TOWARD WINDOW WITH BLINDS OPENED. NO FAMILY AT BEDSIDE THIS MORNING. PT NODS HEAD "NO" WHEN ASKED IF SHE IS IN PAIN.
--- NOTE | 2019-12-12 12:44 | NUR ---
PROVIDER ASSESSMENT DR. HANNA AT BEDSIDE FOR ASSESSMENT. AT TIME OF ASSESSMENT, PT NOT FOLLOWING DIRECTIONS OR OPENING EYES SPONTANEOUSLY. DOES WITHDRAW TO PAIN ALL FOUR EXTREMITIES. NO PLAN FOR EXTUBATION AT THIS TIME. NO NEW ORDERS.
--- NOTE | 2019-12-12 18:28 | NUR ---
WOUND ASSESSMENTS PT'S SKIN EXTREMELY FRAGILE NOTED. SEE WOUND ASSESSMENTS. NOTE ADDED WOUND ASSESSMENT MAX IS 8. WITH EVERY TURN, TUBES/CORDS/LINES REPOSITIONED. THIS EVENING MEPELEX APPLIED FOR REDENNED AREA & 4 MM SIZE OF OPEN BLEEDING AREA TO COCCYX. PT ALSO NOTED TO HAVE SORE TO RIGHT UPPER LIP AND TO MIDDLE OF TONGUE. PREVENTION THROUGHOUT THE DAY HAS INCLUDED REPOSITIONING OF ETT Q2H WITH TURNS, FREQUENT APPLICATION OF MOUTH MOISTURIZER AND ORAL CARE ORDERED.
--- NOTE | 2019-12-12 18:52 | NUR ---
SUMMARY THIS AFTERNOON, PT FAR LESS RESONSIVE THAN THIS MORNING. HOWEVER, THIS EVENING PT BACK TO BASELINE NEURO. LOOKING AROUND SPONTANEOUSLY, FOLLOWING DIRECTIONS ON RIGHT SITE. SEE REPEAT ASSESSMENTS. PT'S DAUGHTER HAS BEEN AT BEDSIDE MAJORITY OF AFTERNOON AND WAS UPDATED BY DR. HANNA. UPDATED ON PLAN OF CARE AND AGREEABLE. VITALS STABLE. SEE FLOWSHEET. RECTAL TUBE CONTINUES TO HAVE MODERATE OUTPUT. DOUGLAS DRAINS CLEAR, YELLOW URINE. PT RESTRAINED TO PROTECT LINES/TUBES.
--- NOTE | 2019-12-12 19:19 | NUR ---
REPORT TO JR MCDOWELL TO ASSUME CARE
--- NOTE | 2019-12-12 22:49 | NUR ---
ALL WOUNDS CLEANSED AND REDRESSED AFTER WOUND PHOTOS DONE. PT HAS NEW OPEN AREA TO COCCYX. WOUND PHOTO TAKEN AND DRESSED WITH MEPILEX.
--- NOTE | 2019-12-12 22:52 | NUR ---
PT INTUBATED. NO SEDATION. WILL TRY TO OPEN EYE'S TO VOICE. PT IS DROWSY AND NOT RESPONSIVE SHE WAS THE PREVIOUS NIGHTS. STILL ABLE TO MOVE R HAND. WILL MOVE LEGS AT OWN WILL BUT NOT TO COMMAND TONIGHT. L ARM IS STILL FLACCID. WOUND CARE DONE. SEE NEW PHOTOS OF ALL WOUNDS. PT'S SKIN IS FRAGILE. MOVING OXIMETER PROBE Q 2HRS TO PREVENT BREAKDOWN. NO SIGN OF DISTRESS. VENT SETTINGS REMAIN THE SAME.
[2019-12-13 05:15] LABS: BASOPHILS ABSOLUTE AUTO 0.02 K/mm3 (0.00-0.23); BASOPHILS PERCENT AUTO 0 % (0-2); EOSINOPHILS ABSOLUTE AUTO 0.18 K/mm3 (0.00-0.68); EOSINOPHILS PERCENT AUTO 2 % (0-6); Hematocrit 26.6 % (33.0-51.0); Hemoglobin 8.4 g/dL (11.5-16.0); IMMATURE GRAN ABSOLUTE AUTO 0.14 K/mm3 (0.00-0.10); IMMATURE GRAN PERCENT AUTO 2 % (0-1); LYMPHOCYTES PERCENT AUTO 23 % (21-46); MONOCYTES ABSOLUTE AUTO 1.01 K/mm3 (0.16-1.47); MONOCYTES PERCENT AUTO 11 % (4-13); Mean Corpuscular HGB 28.4 pg (26.0-34.0); Mean Corpuscular HGB Conc 31.6 g/dL (31.5-36.5); Mean Corpuscular Volume 90 fL (80-100); NEUTROPHILS ABSOLUTE AUTO 5.89 K/mm3 (1.96-9.15); NEUTROPHILS PERCENT AUTO 63 % (41-73); Platelet Count 194 K/mm3 (150-400); RDW Coefficient Variation 13.8 % (11.7-14.2); RDW Standard Deviation 44.7 fL (35.1-46.3); Red Blood Cell Count 2.96 M/mm3 (3.80-5.20); White Blood Cell Count 9.34 K/mm3 (4.00-11.30)
[2019-12-13 05:17] LABS: Mean Platelet Volume 13.6 fL (9.1-12.4)
[2019-12-13 05:29] LABS: Anion Gap 6 mmol/L (6-16); Blood Urea Nitrogen 24 mg/dL (8-24); Bun/Creatinine Ratio 39.9 (12.0-20.0); CO2, Blood 25 mmol/L (21-32); Calcium, Blood 8.4 mg/dL (8.5-10.1); Chloride, Blood 115 mmol/L (98-108); Glomerular Filtration Rate >60 (60-); Glucose, Blood 224 mg/dL (70-99); Magnesium, Blood 1.9 mg/dL (1.6-2.4); Phosphorus, Blood 3.2 mg/dL (2.5-4.9); Potassium, Blood 4.4 mmol/L (3.5-5.5); Sodium, Blood 146 mmol/L (136-145)
--- NOTE | 2019-12-13 05:48 | NUR ---
SUMMARY PT INTUBATED. NO SEDATION. WAS DROWSY ALL NIGHT UNTIL 0500 WHEN PT OPENED EYE'S WIDE AND STARTED NODDING YES OR NO TO QUESTIONS. FOLLOWING COMMANDS WITH R ARM AND LEGS. L ARM IS FLACCID. PT IS REACHING UP WITH R ARM TOWARDS FACE WHEN UNRESTRAINED. NO CHANGES TO VENT SETTINGS. OTHER CHANGES.
--- NOTE | 2019-12-13 09:23 | NUR ---
CARE ASSUMED REPORT RECEIVED, CARE ASSUMED AT 0700 FROM JR MCDOWELL. THIS MORNING, PT'S EYES OPEN SPONTANEOUSLY. PT FOLLOWING DIRECTIONS. VITALS STABLE. SEE SHIFT ASSESSMENT/VITALS FLOWSHEET. DR. ALEXIS TO BEDSIDE FOR ASSESSMENT. NEW ORDERS FOR PT/OT, URINALYSIS, AND STOOL SAMPLE TO LOOK FOR SOURCE OF FEVER.
--- NOTE | 2019-12-13 09:27 | NUR ---
DR. ORNELAS ASSESSMENT DR. ORNELAS TO BEDSIDE FOR ASSESSMENT. ORDER FOR EXTUBATION RECEIVED.
--- NOTE | 2019-12-13 09:49 | NUR ---
EXTUBATION PT EXTUBATED AT 0943. PT CALM, FOLLOWING DIRECTIONS. ABLE TO DEEP BREATH AND COUGH. VITALS STABLE ON 2 LPM NASAL CANNULA. PT QUIET, SLEEPY, BUT DOES AROUSE WITH VERBAL STIMULI. RESTRAINTS REMOVED.
[2019-12-13 10:08] LABS: Source, Urine Catheter
--- NOTE | 2019-12-13 10:17 | NUR ---
FAMILY UPDATED PT'S FAMILY TO BEDSIDE. UPDATED ON EVENTS OF MORNING AND EDUCATED ON PLAN OF CARE. FAMILY AGREEABLE, REQUESTS TO SEE MEDICAL RECORDS ANALYST IF AVAILABLE, DENIES FURTHER QUESTIONS. DR. ORNELAS TO BEDSIDE TO SPEAK WITH FAMILY.
[2019-12-13 10:54] LABS: Bilirubin, Urine Neg (Neg); Blood, Urine 1+ (Neg); Glucose Qualitative, Urine 4+ (Neg); Ketones, Urine 1+ (Neg); Leukocyte Esterase, Urine 2+ (Neg); Nitrite, Urine Neg (Neg); Protein, Urine 2+ (Neg); Specific Gravity, Urine 1.015 (1.003-1.022); Urobilinogen, Urine NORM (Normal)
[2019-12-13 11:07] LABS: Appearance, Urine Hazy (Clear); Bacteria Mod /hpf; Color, Urine Yellow (P-Yellow); Red Blood Cells, Urine 0-2 /hpf (0-2); Squamous Epithelial Cells Mod /hpf (Few)
[2019-12-13 11:08] LABS: Uric Acid Crystals Few /hpf
[2019-12-13 11:34] LABS: Adenovirus F 40/41 Not Detected (NOT DETECT); Astrovirus Not Detected (NOT DETECT); Campylobacter Sp Not Detected (NOT DETECT); Cryptosporidium Not Detected (NOT DETECT); Cyclospora Cayetanensis Not Detected (NOT DETECT); E. Coli O157 Not Detected (NOT DETECT); Entamoeba Histolytica Not Detected (NOT DETECT); Enteroaggregative E. coli-EAEC Not Detected (NOT DETECT); Enteropathogenic E. coli-EPEC Not Detected (NOT DETECT); Enterotoxigenic E. coli-ETEC Not Detected (NOT DETECT); Giardia Lamblia Not Detected (NOT DETECT); Norovirus GI/GII Not Detected (NOT DETECT); Plesiomonas Shigelloides Not Detected (NOT DETECT); Rotavirus A Not Detected (NOT DETECT); Salmonella Sp Not Detected (NOT DETECT); Sapovirus Not Detected (NOT DETECT); Shiga Toxin-prod E. coli-STEC Not Detected (NOT DETECT); Shigella/Enteroin E. coli-EIEC Not Detected (NOT DETECT); Vibrio Cholerae Not Detected (NOT DETECT); Vibrio Sp Not Detected (NOT DETECT); Yersinia Enterocolitica Not Detected (NOT DETECT)
--- NOTE | 2019-12-13 11:42 | NUR ---
SPEECH THERAPY GUIDO FROM SPEECH THERAPY AT BEDSIDE FOR ASSESSMENT. PT TOO SLOW TO RESPOND AT THIS TIME PER GUIDO. STRICT NPO UNTIL SHE IS ABLE TO DO A FULL ASSESSMENT. DR. ORNELAS UPDATED.
[2019-12-13 13:43] LABS: ANA Pattern Homogenous
--- NOTE | 2019-12-13 18:32 | NUR ---
SUMMARY SINCE PREVIOUS NOTE, PT HAS REMAINED ON 2 LPM NASAL CANNULA AND TOLERATED WELL. PT HAS BEEN SLEEPY THIS AFTERNOON, BUT DOES AROUSE WITH STIMULATION. VITALS STABLE. DAUGHTER AT BEDSIDE THROUGHOUT AFTERNOON AND HAS BEEN INVOLVED IN CARE. MOSTLY PT HAS BEEN COMMUNICATING VIA NODDING HEAD, YES/NO QUESTIONS. TONIGHT, PT ABLE TO VERBALIZE NAME AND YEAR, BUT BELIEVES SHE IS IN BEND. PT FOLLOWS DIRECTIONS WITH FUNCTIONAL SIDE. SEE REPEAT ASSESSMENT/FLOWSHEETS.
--- NOTE | 2019-12-13 19:08 | NUR ---
BEDSIDE REPORT TO ODETTE RN TO ASSUME CARE
--- NOTE | 2019-12-13 19:25 | NUR ---
REPORT TO JR ATWOOD TO ASSUME CARE
--- NOTE | 2019-12-14 01:08 | NUR ---
ASSUME CARE: BEDSIDE REPORT RECIEVED FROM NORTH OFF GOING RN. FAMILY AT BEDSIDE . MONITOR INTACT SHOWING SINUS RHYTHM HEART RATE 60'S-70'S. AROUSES TO VERBAL STIMULI SPEAKS IN A VERY SOFT VOICE DIFFICULT TO UNDERSTAND. DOZES OFF TO SLEEP QUICKLY AFTER BEING REPOSITIONED. LUNG SOUNDS CLEAR UPPER LOBES COARSE DECREASED BASES. O2 IN PLACE AT 2L/MIN PER NASAL CANNULA. ABDOMEN SOFT WITH BOWEL SOUNDS FOUR QUADS. DOUGLAS PATENT DRAINING QUINTIN URINE. RECTAL TUBE INTACT WITH LIQUID BROWN RETURM. PAS TO LOWER EXTREMITIES; EXTREMITIES ELVATED ON PILLOWS SECONDARY TO GENERAL IZED DEPENDENT EDEMA. CONTINUE TO MONITOR AND REPORT CHANGE IN PATIENT CONDITION
[2019-12-14 04:27] LABS: BASOPHILS ABSOLUTE AUTO 0.02 K/mm3 (0.00-0.23); BASOPHILS PERCENT AUTO 0 % (0-2); EOSINOPHILS ABSOLUTE AUTO 0.18 K/mm3 (0.00-0.68); EOSINOPHILS PERCENT AUTO 2 % (0-6); Hematocrit 25.2 % (33.0-51.0); Hemoglobin 7.9 g/dL (11.5-16.0); IMMATURE GRAN ABSOLUTE AUTO 0.08 K/mm3 (0.00-0.10); IMMATURE GRAN PERCENT AUTO 1 % (0-1); LYMPHOCYTES PERCENT AUTO 25 % (21-46); MONOCYTES ABSOLUTE AUTO 0.81 K/mm3 (0.16-1.47); MONOCYTES PERCENT AUTO 9 % (4-13); Mean Corpuscular HGB 28.1 pg (26.0-34.0); Mean Corpuscular HGB Conc 31.3 g/dL (31.5-36.5); Mean Corpuscular Volume 90 fL (80-100); NEUTROPHILS PERCENT AUTO 62 % (41-73); Platelet Count 242 K/mm3 (150-400); RDW Coefficient Variation 13.4 % (11.7-14.2); RDW Standard Deviation 43.9 fL (35.1-46.3); Red Blood Cell Count 2.81 M/mm3 (3.80-5.20); White Blood Cell Count 8.69 K/mm3 (4.00-11.30)
[2019-12-14 04:33] LABS: Mean Platelet Volume 13.3 fL (9.1-12.4)
[2019-12-14 04:52] LABS: Alanine Aminotransfer (ALT/SGP 18 U/L (12-78); Albumin, Blood 1.5 g/dL (3.4-5.0); Albumin/Globulin Ratio 0.4 (0.8-1.8); Alk Phos 132 U/L (50-136); Anion Gap 8 mmol/L (6-16); Aspartate Aminotrans (AST/SGOT 10 U/L (12-37); Bilirubin, Total 0.2 mg/dL (0.1-1.0); Blood Urea Nitrogen 17 mg/dL (8-24); Bun/Creatinine Ratio 30.9 (12.0-20.0); CO2, Blood 24 mmol/L (21-32); Calcium, Blood 8.1 mg/dL (8.5-10.1); Chloride, Blood 114 mmol/L (98-108); Creatinine, Blood 0.55 mg/dL (0.40-1.00); Globulin, Blood 3.8 g/dL (2.2-4.0); Glomerular Filtration Rate >60 (60-); Glucose, Blood 134 mg/dL (70-99); Magnesium, Blood 1.8 mg/dL (1.6-2.4); Phosphorus, Blood 3.4 mg/dL (2.5-4.9); Potassium, Blood 3.9 mmol/L (3.5-5.5); Sodium, Blood 146 mmol/L (136-145); Total Protein, Blood 5.3 g/dL (6.4-8.2)
--- NOTE | 2019-12-14 06:32 | NUR ---
SHIFT SUMMARY: AROUSES TO VERBAL AND TACTILE STIMULI. SLOW TO RESPOND. SPEAKS IN VERY SOFT VOICE. DIFFICULT TO UNDERSTAND AT TIMES. MONITOR REMAINS INTACT SHOWING SINUS RHYTHM HEART RATE 60'S-70'S. LUNG SOUNDS CLEAR IN THE UPPER LOBES WITH DECREASED COARSE SOUNDS IN THE BASES. HOME CPAP REMAINS IN PLACE SPO2 88-98% PERIODS OF APNEA NOTED. ABDOMEM SPFT WOTH BOWEL SOUNDS FOUR QUADS. DOUGLAS PATENT DRAINING QUINTIN URINE RECTAL TUBE PATENT WITH SMALL AMT LIQUID BROWN RETURN. DRESSINGS INTACT TO VARIOUS WOUNDS . CONTINUE TO MONITOR AND REPORT CHANGE IN PATIENT CONDITION
--- NOTE | 2019-12-14 06:40 | NUR ---
DR PARTIDA NOTIFIED OF LAB RESULTS OF HGB 7.9 FROM 8.4 WITH NO ACTIVE S/S ACTIVE BLEEDING CONTINUE TO MONITOR AND REPORT CHANGE IN PATIENT CONDITION
--- NOTE | 2019-12-14 08:25 | NUR ---
CARE ASSUMED CARE AND REPORT ASSUMED FROM ODETTE RN. PT SLEEPING BUT AROUSES TO LOUD VERBAL STIMULI. NO S/S PAIN AT THIS TIME. NSR, HR 70S. BP ELEVATED 170S SYSTOLIC. TKO INFUSING. SPEECH THERAPY AT BEDSIDE FOR SWALLOW EVAL; AWAITING TO SEE IF PT CAN SWALLOW HER AM PILLS. CPAP REMOVED AND 2L NC APPLIED. LUNG SOUNDS COARSE ON R SIDE AND CLEAR ON L SIDE. LIPS SWOLLEN THIS MORNING. WILL CONTINUE TO MONITOR.
[2019-12-14 11:07] LABS: ANTI-DSDNA ANTIBODIES 1 IU/mL (0-9); RNP ANTIBODIES <0.2 AI (0.0-0.9); SJOGREN'S ANTI-SS-A <0.2 AI (0.0-0.9); SJOGREN'S ANTI-SS-B <0.2 AI (0.0-0.9); SMITH ANTIBODIES <0.2 AI (0.0-0.9)
--- NOTE | 2019-12-14 11:53 | NUR ---
REASSESSMENT NGT INSERTED FOR TF NUTRITION. PT TOLERATED INSERTION WELL. PLACEMENT VERIFIED WITH GASTRIC SOUNDS. PT TURNED AND HOB ELEVATED. PT FAILED SPEECH EVAL THIS AM AND REMAINS NPO. OT WORKED WITH PT THIS AM. HYDRALAZINE 10 MG IVP GIVEN FOR BP CONTROL. MIV 1/2 NS INFUSING AT 75 ML/HR PER ORDER. STOOL SAMPLE COLLECTED AND SENT TO LAB. WILL CONTINUE TO MONITOR.
[2019-12-14 13:42] LABS: Stool Occult Bld Immuno 1 Negative (NEGATIVE)
--- NOTE | 2019-12-14 16:10 | NUR ---
TRANSFER TO PCU REPORT CALLED TO TIMBO IN PCU. VSS. PT SIGNED POLST FORM AND CHANGE TO DNR.
--- NOTE | 2019-12-14 16:24 | NUR ---
NGT REMOVED WHEN CHECKING ON PT PRIOR TO TRANSFERRING TO PCU, PT WAS FOUND TO HAVE PULLED OUT HER NGT. SHE STATED AT THIS TIME THAT IT WAS UNCOMFORTABLE AND SHE DID NOT WANT ANOTHER DOPHOFF OR NGT INSERTED. RECIEVING MANDOLIN REPAIR PERSON AWARE.
--- NOTE | 2019-12-14 16:54 | NUR ---
DENISE KENNEDY PT ARRIVED TO THE PCU A/OX3, REPORT WAS TAKEN FROM ENVIRONMENTAL STUDIES FACULTY MEMBER CARLOS, THE PT JUST BEFORE TRANSFER PULLED OUT HER NG TUBE, DR. CRANE WAS NOTIFIED AND ORDERED THE NG TUBE TO BE DC'D AT THIS TIME PER THE PTS REQUEST, PT IS TO BE REEVALUATED IN THE AM FOR SWALLOW, PT ORIENTED TO THE ROOM LAYOUT AND CALL SYSTEM, CALL LIGHT IN REACH VSS
--- NOTE | 2019-12-14 18:38 | NUR ---
Inital spiritual care note: Asked by RN to meet with Garima to discuss medical non-compliance per family. Garima was very sleepy. She opened eyes briefly and spoke softly when answering me. She denied having trouble managing her illness. She denied that her family was concered about her. She did admit that her life is no longer enjoyable, and she could not answer as to why or the last time she was happy. That said, she denied any reason for change. She appears emotionally withdrawn. She did not respond to me when I asked about spiritual beleifs or prayer. she is listed as Religion in chart. She stopped speaking to me and appeared to be asleep. Visit ended. I will remain available to pt and family.
[2019-12-15 03:52] LABS: BASOPHILS ABSOLUTE AUTO 0.05 K/mm3 (0.00-0.23); BASOPHILS PERCENT AUTO 1 % (0-2); EOSINOPHILS ABSOLUTE AUTO 0.16 K/mm3 (0.00-0.68); EOSINOPHILS PERCENT AUTO 1 % (0-6); Hematocrit 27.1 % (33.0-51.0); Hemoglobin 8.5 g/dL (11.5-16.0); IMMATURE GRAN PERCENT AUTO 1 % (0-1); LYMPHOCYTES ABSOLUTE AUTO 2.06 K/mm3 (0.84-5.20); LYMPHOCYTES PERCENT AUTO 19 % (21-46); MONOCYTES PERCENT AUTO 7 % (4-13); Mean Corpuscular HGB 28.3 pg (26.0-34.0); Mean Corpuscular HGB Conc 31.4 g/dL (31.5-36.5); Mean Corpuscular Volume 90 fL (80-100); Mean Platelet Volume 12.8 fL (9.1-12.4); NEUTROPHILS ABSOLUTE AUTO 7.88 K/mm3 (1.96-9.15); NEUTROPHILS PERCENT AUTO 71 % (41-73); Platelet Count 317 K/mm3 (150-400); RDW Coefficient Variation 13.4 % (11.7-14.2); RDW Standard Deviation 43.3 fL (35.1-46.3); White Blood Cell Count 11.05 K/mm3 (4.00-11.30)
[2019-12-15 04:10] LABS: Alanine Aminotransfer (ALT/SGP 21 U/L (12-78); Albumin, Blood 1.6 g/dL (3.4-5.0); Albumin/Globulin Ratio 0.4 (0.8-1.8); Alk Phos 126 U/L (50-136); Anion Gap 12 mmol/L (6-16); Aspartate Aminotrans (AST/SGOT 8 U/L (12-37); Bilirubin, Total 0.4 mg/dL (0.1-1.0); Blood Urea Nitrogen 14 mg/dL (8-24); CO2, Blood 18 mmol/L (21-32); Calcium, Blood 8.2 mg/dL (8.5-10.1); Chloride, Blood 112 mmol/L (98-108); Creatinine, Blood 0.48 mg/dL (0.40-1.00); Glomerular Filtration Rate >60 (60-); Glucose, Blood 165 mg/dL (70-99); Magnesium, Blood 1.6 mg/dL (1.6-2.4); Phosphorus, Blood 3.5 mg/dL (2.5-4.9); Sodium, Blood 142 mmol/L (136-145); Total Protein, Blood 5.6 g/dL (6.4-8.2)
--- NOTE | 2019-12-15 06:14 | NUR ---
SHIFT SUMMARY PT LETHARGIC; PT WAS ALERT AT START OF SHIFT; SPOKE W/ DAUGHTER RENARD ON THE PHONE FOR UPDATE; DAUGHTER STATED SHE WOULD CALL BACK AROUND 1200 TODAY;ANSWERED A FEW QUESTIONS; KNEW SHE WAS IN THE HOSPITAL BUT COULD NOT STATE WHERE; THIS AM PT NODS HEAD IN ACKOWLEGEMENT TO EDUCATION; DOUGLAS DRAINING CLEAR YELLOW URINE; RECTAL TUBE DRAINING GREEN/BROWN LIQUID STOOL; CPAP IN PLACE DURATION OF NIGHT; PT SLEPT WELL; +1 PITTING EDEMA IN HANDS; R L TIGHT SKIN; EDEMA BILATTERLY; CALL LIGHT IN REACH; BED IN LOWEST POSITON; WILL MONITOR CLOSELY UNTIL HAND OFF TO DAY SHIFT RN.
[2019-12-15 12:14] LABS: PCO2 Arterial 26.2 mmHg (35-45); PO2 Arterial 83.3 mmHg (80-100); pH Blood Arterial 7.41 (7.35-7.45)
--- NOTE | 2019-12-15 14:08 | NUR ---
Patient is lying in bed and asleep. Patient awakens to the sound of her name and affirms that she wants a electrotyper apprentice visit. I put on the PPE and patient is back asleep by the time I walk in the room. Patient can't keep her eyes open so I ask patient if it would be alright if I said a quick prayer for her and she agrees that it would be ok. I gladly say a prayer. Patient repeats "amen" after me and then starts to fall asleep again and is snoring before I can get the PPE off. I will continue to remain available to patient and family.
--- NOTE | 2019-12-15 18:49 | NUR ---
SHIFT NOTE PT HAS BEEN LETHARGIC T/O SHIFT, PT DOES NOT RESPOND TO VERBAL STIMULI, FLUTTERS EYES TO STIMULI. PT GROANS, THERE IS SOME OCCASIONAL GARBLED SPEECH, PT DOES MOVE ARMS OCCASIONALLY BUT DOES NOT APPEAR PURPOSEFUL. PERRLA, 3MM PUPILS THAT ARE SLUGGISH TO LIGHT. RECTAL TUBE WAS REMOVED THIS AM W/O COMPLICATIONS. DRESH ATTENDS PLACED AT SHIFT CHANGE. PPN IS INFUSING VIA POWERGLIDE. DOUGLAS DRAINING WELL TO GRAVITY WITH 1000ML OUTPUT
[2019-12-16 04:14] LABS: Anion Gap 8 mmol/L (6-16); Blood Urea Nitrogen 12 mg/dL (8-24); Bun/Creatinine Ratio 27.1 (12.0-20.0); CO2, Blood 23 mmol/L (21-32); Calcium, Blood 8.4 mg/dL (8.5-10.1); Chloride, Blood 111 mmol/L (98-108); Creatinine, Blood 0.44 mg/dL (0.40-1.00); Glomerular Filtration Rate >60 (60-); Glucose, Blood 229 mg/dL (70-99); Magnesium, Blood 1.7 mg/dL (1.6-2.4); Phosphorus, Blood 2.7 mg/dL (2.5-4.9); Potassium, Blood 3.7 mmol/L (3.5-5.5); Sodium, Blood 142 mmol/L (136-145); Triglycerides 126 mg/dL (30-160)
--- NOTE | 2019-12-16 06:39 | NUR ---
PT LETHARGIC, OPENS EYES TO PAIN, LOCALIZING WITH RIGHT ARM, MINMAL MOVEMENT TO LEFT. NO VERBAL MOANS AND GROANS. DOUGLAS IN PLACE AND DRAINING TO GRAVITY. PT HAD X3 BM OVERNIGHT AND 1500 URNINE OUTPUT. TPN INFUSING THROUGH POWER GLIDE ON RUE. PT PLACED ON CPAP OVERNIGHT AND TOLERATING WELL. NO ACUTE EVENTS WILL CONTINUE TO MONITOR
--- NOTE | 2019-12-16 12:18 | NUR ---
PT'S WOUNDS TO BREASTS ARE CLEANED AND DRESSED WITH ABD PADS AND SENTYL. PT DID OPEN RT EYE TO VERBAL COMMAND, PT NODS "NO" WHEN ASKED IF SHE WAS IN PAIN, NODS "YES" WHEN ASKED IF SHE WAS COMFORTABLE. PT WAS ABLE TO TO SQUEEZE THIS RN'S HAND WITH RT HAND WHEN ASKED, LT HAND WITH MINIMAL MOVEMENT WHEN ASKED TO PLANT SPRAYER MY HAND, BUT MOVEMENT APPEARS PURPOSEFUL.
--- NOTE | 2019-12-16 13:07 | NUR ---
PT RESTING IN POSITION OF COMFORT. RAIVN.
--- NOTE | 2019-12-16 18:50 | NUR ---
SHIFT NOTE PT HAS HAS INTERMITTENT EPISODES THAT SHE HAS REPOSNDED TO VERBAL STIMULI T/O THE DAY. PT WAS ABLE TO NOD "NO" WHEN ASKED IF SHE WAS IN PAIN AND NOD "YES" WHEN ASKED IF SHE WAS COMFORTABLE. PT WILL TAXI DANCER WITH RT HAND WHICH APPEARS TO GET STRONGER WITH EACH ASSESSMENT OF HAND, LT SIDE STILL REMAINS FLACCID. PT DOES HAVE PLANTAR SURFACE REFLEXES BILAT. PERRL WITH 2MM PUPILS THAT REMAIN SLUGGISH TO LIGHT. WOUNDS T/O BODY ARE ASSESSED WITH THIS RN AND DR ALEXIS THIS AM, WOUNDS TO BREASTS WERE DRESSED. DOUGLAS REMAINS IN PLACE AND IS DRAINING TO GRAVITY. VSS.
[2019-12-17 03:57] LABS: BASOPHILS ABSOLUTE AUTO 0.05 K/mm3 (0.00-0.23); BASOPHILS PERCENT AUTO 0 % (0-2); EOSINOPHILS PERCENT AUTO 2 % (0-6); Hemoglobin 8.4 g/dL (11.5-16.0); IMMATURE GRAN ABSOLUTE AUTO 0.11 K/mm3 (0.00-0.10); IMMATURE GRAN PERCENT AUTO 1 % (0-1); LYMPHOCYTES ABSOLUTE AUTO 1.97 K/mm3 (0.84-5.20); LYMPHOCYTES PERCENT AUTO 17 % (21-46); MONOCYTES ABSOLUTE AUTO 0.82 K/mm3 (0.16-1.47); MONOCYTES PERCENT AUTO 7 % (4-13); Mean Corpuscular HGB 28.4 pg (26.0-34.0); Mean Corpuscular HGB Conc 32.3 g/dL (31.5-36.5); Mean Corpuscular Volume 88 fL (80-100); Mean Platelet Volume 12.4 fL (9.1-12.4); NEUTROPHILS ABSOLUTE AUTO 8.75 K/mm3 (1.96-9.15); NEUTROPHILS PERCENT AUTO 74 % (41-73); Platelet Count 408 K/mm3 (150-400); RDW Coefficient Variation 13.4 % (11.7-14.2); Red Blood Cell Count 2.96 M/mm3 (3.80-5.20)
[2019-12-17 04:20] LABS: Alanine Aminotransfer (ALT/SGP 14 U/L (12-78); Albumin, Blood 1.7 g/dL (3.4-5.0); Anion Gap 4 mmol/L (6-16); Aspartate Aminotrans (AST/SGOT 11 U/L (12-37); Bilirubin, Total 0.2 mg/dL (0.1-1.0); Blood Urea Nitrogen 15 mg/dL (8-24); Bun/Creatinine Ratio 37.7 (12.0-20.0); CO2, Blood 26 mmol/L (21-32); Calcium, Blood 8.8 mg/dL (8.5-10.1); Chloride, Blood 111 mmol/L (98-108); Glomerular Filtration Rate >60 (60-); Glucose, Blood 271 mg/dL (70-99); Magnesium, Blood 1.9 mg/dL (1.6-2.4); Phosphorus, Blood 3.3 mg/dL (2.5-4.9); Potassium, Blood 4.2 mmol/L (3.5-5.5); Sodium, Blood 141 mmol/L (136-145)
[2019-12-17 04:21] LABS: Albumin/Globulin Ratio 0.4 (0.8-1.8); Alk Phos 102 U/L (50-136); Total Protein, Blood 5.7 g/dL (6.4-8.2)
--- NOTE | 2019-12-17 06:17 | NUR ---
PCU NOC SHIFT SUMMARY PATIENT REMAINS UNCHANGED FROM PREVIOUS SHIFT REPORT. PATIENT HAS NO MEANINGFUL COMMUNICATION WITH OCCASSIONAL GRUNTS AND ONE WORD VERBALIZING. PATIENT REMAINS SINUS RHYTHM WITH NO CARDIAC EVENTS PER INDEPENDENT DISTRIBUTOR. PATIENT TURNED Q2 HOUR, SKIN CARE PROVIDED DURING THIS TIME. WOUNDS ARE HEALING PER PREVIOUS PICTURES IN CHART ON BREAST, TOES, NOSE, KNEES AND COCCYX. PATIENT DNR. WILL CONTINUE TO MONITOR AND GIVE REPORT TO DAYSHIFT RN.
--- NOTE | 2019-12-17 08:37 | NUR ---
ASSUMED CARE VS STABLE. HR NSR. PT NONRESPONSIVE. PT SHOOK HER HEAD SIDE TO SIDE WHEN ASKED IF SHE WAS IN PAIN. PT MOANING OCCASIONALLY. SPOKE WITH PT'S DAUGHTER DANIAL THIS AM AND DAUGHTER WOULD LIKE TO MOVE TOWARDS COMFORT CARE. ATTILA RN ON THE PHONE WELL TO VERIFY COMFORT CARE. DR. GREEN CALLED AND NOTIFIED. PALLIATIVE CARE CALLED AND NOTIFIED WELL. AWAITING ORDERS. WILL CONTINUE TO MONITOR CLOSELY.
--- NOTE | 2019-12-17 11:10 | NUR ---
TRANSFER/COMFORT CARE PATIENT TRANSFERED FROM PCU TO MEDICAL FLOOR. PATIENT RECENTLY CHANGED TO COMFORT CARE. PATIENT SHOWS NO SIGNS OF PAIN, DISTRESS, OR DIFFIUCLTY BREATHING. PATIENT UNRESPONSIVE TO STIMULI.
--- NOTE | 2019-12-17 15:50 | NUR ---
Spoke with nursing, VALARIE Bruno, and pt's marco ather in [facility], Mor[place]. Gave pt's dtr an update that Garima has been moved up to room 364 on comfort care. Mora states she just wants her mom to be comfortable and not in pain. Mora reports that her mom's sister in law, Nazanin, lives locally and may visit. Offered to contact Nazanin with an update, however Mora reports she is in contact with Nazanin and will let her know current room and POC. Plan is to see how Garima does over the weekend. If she deteriorates, she may stay here. If she stabilizes and does not appear emminent will need to start making plans for discharge on Friday. Pt's dtr aware of this and states she is in agreement. Mora reports that she has not thought about a discharge plan for her mom at this point. She is still dealing with placing her mom on comfort care this morning. Will allow Mora time to process and will readdress discharge planning on Friday if appropriate. PC will continue to follow for comfort care/symptom management.
--- NOTE | 2019-12-17 17:24 | NUR ---
SHIFT SUMMARY PATIENT SLEEPING ALL OF SHIFT. PATIENT NOT AROUSABLE. PATIENT SHOWS NO SIGNS OF PAIN, DISTRESS, OR DIFFICULTY BREATHING. REPOSITIONED Q2.
--- NOTE | 2019-12-17 19:31 | NUR ---
YUE IS SLEEPING COMFORTABLY, AWAKENS WITH VERBAL STIMULI. POWER GLIDE FLUSHED WELL. SHE DENIES ANY PAIN AT THIS TIME. ALL DRESSINGS ARE CDI. DOUGLAS PATENT AND DRAINING. ORAL CARE PROVIDED. WILL CONTINUE TO MONITOR.
--- NOTE | 2019-12-18 01:47 | NUR ---
PATIENT CONTINUES TO SLEEP COMFORTABLY. REPOSITIONED. NO SIGNS OF DISTRESS OR CHANGES. WILL CONTINUE TO MONITOR.
--- NOTE | 2019-12-18 06:01 | NUR ---
SHIFT SUMMARY: YUE HAS REMAINED COMFORTABLE THIS SHIFT. SHE DID OPEN HER EYES AT START OF SHIFT AND SPOKE A FEW WORDS. SINCE THEN SHE HAS REMAINED SLEEPING, SNORING IN THE ROOM AND DID NOT AWAKEN EVEN FOR POSITION CHANGES OR ATTENDS CHECKS. DOUGLAS REMAINED PATENT AND DRAINING. NO DISTRESS NOTED THIS SHIFT. WILL REPORT TO DAY SHIFT.
--- NOTE | 2019-12-18 12:41 | NUR ---
Review of prn meds with nursing. pt snoring and somulent. no s/s of pain monitor sedation.
--- NOTE | 2019-12-18 20:09 | NUR ---
PATIENT SLEEPING ON HER BACK CURRENTLY. HAVING BRIEF EPISODES OF APNEA AND COUGHING. SOUNDS SLIGHTLY WET UPON LISTENING TO HER BREATHE. DAUGHTER IN LAW AT BEDSIDE.
--- NOTE | 2019-12-18 20:12 | NUR ---
PT LAYING IN BED WITH EYES CLOSED, RR 32 SNORING QUITE LOUD. TURNED, ORAL CARE AND MOUTH MOISTURIZER. PT HOT AND SWEATING- TOOK OFF HOT BLANKET AND WASHED PT OFF UNTER ARMS AND FACE WITH COOL CLOTH LEFT OVER FOREHEAD. COVERED WITH SHEET. PT APPEARED MORE COMFORTABLE ONCE TURNED TO SIDE.
--- NOTE | 2019-12-18 20:16 | NUR ---
PT REMAINS SEMI-COMATOSE. RR 30'S, WARM TO TOUCH AND SWEATY, COOLED WITH COLD CLOTH. ORAL CARE DONE. DONALD AND CATH CARE DONE. LG LIQ ORANGE BM, CLEANSED SKIN, NEW ATTENDS. ATROPINE FOR SOME MOIST SECREATIOS. ATIVAN TO AID IN RELAXING BREATHING ANXIETY.
--- NOTE | 2019-12-18 20:19 | NUR ---
PT TURNED, GIVEN TYLENOL SUPP AND ATIVAN TO AID IN SLOWING RESP AND RELAX BREATHING. SUPP FOR COMFORT AND PT FEELING WARM. CONT TO COVER WITH SHEET. PT SETTLED DOWN NICELY SINCE TURN AND MEDICATION. NO SNORING, RR DOWN TO 24
--- NOTE | 2019-12-18 20:22 | NUR ---
PT BREATHING COMFORTABLY AND RR 20, NO SNORING. PT STILL WARM, FAN TO GIVE A BREEZE. COVERING WITH SHEET.
--- NOTE | 2019-12-18 20:23 | NUR ---
PT APPEARS COMFORTABLE, RR 18. MIN SECRETIONS, ORAL CARE AND TURN. PT SETTELED INTO NEW POSITION, OPENED EYES ONCE, FIGHTS ORAL CARE AND BITES TOOTHETTE.
--- NOTE | 2019-12-18 20:25 | NUR ---
PT'S RESP RATE INCREASED AGAIN AND SNORING. PT ORAL CARE DONE FOR SECRETIONS. MOUTH MOISTURE FOR DRY MOUTH. PT HAD ANOTHER LG LOOSE ORANGE STOOL. DOUGLAS CARE AND DONALD CARE. SKIN REMAINS INTACT. MEDICATED WITH ATIVAN TO AID IN RESP EASE. PT IS NOT FEELING WARM, CONT WITH FAN AND SHEET. WOUND CARE COMPLETE TO BREASTS, CLEANSED AND APPLIED XEROFORM GAUZE AND EXUDRY. WOUNDS HAD WEAPED SEROUS. WOUND BED WHITE ESCHAR, UNSTAGABLE. SLIGHTLY FOUL SMELL. REPORT TO NIGHT RN. SPOKE WITH DAUGHTER RENARD TODAY TWICE, WANTS TO BE NOTIFIED OF PT'S PASSING IS SOON, AND CHRISTA WHO HAS BEEN PT'S MAIN SUPPORT AND HELP HERE IN [place] (EX SISTER IN LAW) WILL BE HAPPY TO COME AND SIT WITH PT. i SPOLE IN DEPTH WITH CHRISTA WHO IS CLOSE WITH PT AND WILL BE HAPPY TO COME SIT WITH PT IF SHE IS CLOSE TO DYING. FAMILY REQ RODNEY CHAPEL OF THE [facility] ONCE SHE EXPIRES.
--- NOTE | 2019-12-18 21:01 | NUR ---
PATIENT'S DAUGHTER CALLED WANTING INFORMATION ABOUT A LUNG INFECTION THAT THE PATIENT HAS BEEN DIAGNOSED WITH AND WANTED TO KNOW WHY SHE HADN'T HEARD ABOUT IT YET. I EXPLAINED THAT SHE HAD ESBL IN HER RESPIRATORY TRACT AND THAT IT WAS CONTAGEOUS AND THAT WAS WHY SHE WAS IN ISOLATION. I ALSO EXPLAINED THAT THE CULTURES TOOK TIME TO GROW AND THE RESULTS HAD ONLY BEEN FINALIZED RECENTLY. PATIENT'S DAUGHTER IS REQUESTION FOR THE DOCTOR TO CALL HER WITH MORE INFORMATION ABOUT THIS IN THE MORNING.
--- NOTE | 2019-12-18 22:13 | NUR ---
PATIENT REPOSITIONED ON RIGHT SIDE. SHOWS NO SIGN OF PAIN OR ANXIETY. SLEEPING AND BREATHING COMFORTABLY.
--- NOTE | 2019-12-19 00:31 | NUR ---
PATIENT REPOSITIONED ON LEFT SIDE. BRIEF CHANGED, PERICARE COMPLETED. PATIENT SLEEPING AND BREATHING COMFORTABLY.
--- NOTE | 2019-12-19 02:28 | NUR ---
PATIENT REPOSITIONED TO RIGHT SIDE. DONALD CARE COMPLETED.
--- NOTE | 2019-12-19 06:09 | NUR ---
PATIENT SLEEPING COMFORTABLY
--- NOTE | 2019-12-19 06:09 | NUR ---
PATIENT REPOSITIONED ON HER BACK. ATTENDS CHANGED AND DONALD CARE COMPLETED. PATIENT VERBALLY EXPRESSING AREAS OF DISCOMFORT AND ANSWERING YES OR NO QUESTIONS.
--- NOTE | 2019-12-19 06:35 | NUR ---
SHIFT SUMMARY PATIENT REPOSITIONED EVERY TWO HOURS. SHE DID NOT SHOW ANY SIGNS OF PAIN OR ANXIETY AND HAS BEEN SLEEPING ALL NIGHT. BED IN LOWEST POSITION WITH WHEELS LOCKED. CALL LIGHT WITHIN REACH. REPORT GIVEN TO ONCOMING RN.
--- NOTE | 2019-12-19 11:07 | NUR ---
0830 PT RESTING COMFORTABLY IN BED, PT REPOSITIONED, ORAL CARE COMPLETED, INCONTINENT STOOL CARE COMPLETED, CATHETER CARE COMPLETED. PT WITH MILD MOANING WITH REPOSITIONING, APPEARS COMFORTABLE AT REST. PT OTHERWISE UNRESPONSIVE, EYES CLOSED. NO DYSPNEA. 1010 PT'S DAUGHTER DANIAL CALLED, UPDATE GIVEN, QUESTIONS ANSWERED.
--- NOTE | 2019-12-19 11:59 | NUR ---
Review of prn meds for pt with nursing.
--- NOTE | 2019-12-19 18:38 | NUR ---
SHIFT SUMMARY. PT MOSTLY SOMULENT MOST OF SHIFT, PT AWAKENS WITH PHYSICAL STIMULATION, MOSTLY WITH REPOSITIONING, THEN FALLS BACK ASLEEP. PT MEDICATED FOR PAIN TWICE THIS SHIFT, PT PAINFUL WITH REPOSITIONING, PT TOLERATED ROXONOL WITHOUT ISSUE. NO N/V, SOB, PT IS MOSTLY WITHOUT S/SX OF DISTRESS OR DISCOMFORT. RECTAL TUBE PLACED AFTER CONSTANT LIQUID BOWEL MOVEMENTS THIS SHIFT, TUBE PATENT WITH MINIMAL DRAINAGE AROUND TUBE. PT'S DAUGHTER DANIAL CALLED TWICE THIS SHIFT AND UPDATED ON STATUS AND CARE PLAN, DAUGHTER AGREED WITH PLAN OF CARE AND THAT ALL QUESTIONS WERE ANSWERED. NO OTHER CHANGES OR CONCERNS.
--- NOTE | 2019-12-19 19:48 | NUR ---
PATIENT REPOSITIONED TO RIGHT SIDE. BREATHING EVEN AND UNLABORED. NO INDICATIONS OF PAIN.
--- NOTE | 2019-12-19 22:42 | NUR ---
PATIENT WAS MOANING LOUDLY WHEN I ENTERED THE ROOM AND SEEMED TO BE IN PAIN. PATIENT REPOSITIONED TO RIGHT SIDE AND MEDICATED WITH 10 MG PRN ROXANOL. PATIENT SEEMED MUCH MORE COMFORTABLE AFTERWARDS.
--- NOTE | 2019-12-20 00:43 | NUR ---
PATIENT'S EYES WERE OPEN AND SHE WAS TALKING TO FLEXIBLE MACHINING SYSTEM MACHINIST AND RN. SHE WAS MOANING AND SAID THAT SHE WAS IN PAIN AND REQUESTED SOMETHING COLD TO DRINK. PATIENT MEDICATED WITH 5 MG PRN ROXANOL. PATIENT'S MOUTH SWABBED WITH ICE WATER. SHE DID NOT WANT TO BE REPOSITIONED STATING THAT SHE WAS COMFORTABLE WHERE SHE WAS. MEPILEX DRESSING REPLACED ON LEFT BREAST IT HAD COME OFF. PATIENT PROMPTLY WENT BACK TO SLEEP AFTER CARE WAS DONE.
--- NOTE | 2019-12-20 02:30 | NUR ---
PATIENT SLEEPING COMFORTABLY. BREATHING EASILY AND QUIETLY. PATIENT IS NOT MOANING AND SHOWS NO SIGNS OF PAIN OR DISCOMFORT.
--- NOTE | 2019-12-20 04:36 | NUR ---
PATIENT WAS MOANING. WHEN ASKED, SHE COMPLAINED OF PAIN AND REQUESTED PAIN MEDICATION. 10 MG PRN ROXANOL WAS ADMINISTERED AND SHE SAID THAT IT HELPED THE PAIN LEVEL DECREASE. SHE DID NOT WANT TO BE REPOSITIONED SHE WAS COMFORTABLE WHERE SHE WAS.
--- NOTE | 2019-12-20 05:28 | NUR ---
SHIFT SUMMARY PATIENT MORE ALERT OVERNIGHT. SHE WOULD OPEN HER EYES AND AND SPEAK IN 3-4 WORD SENTENCES. SHE VOICED THAT SHE PREFERS TO BE POSITIONED ON HER RIGHT SIDE. PATIENT MEDICATED FOR PAIN PER EMAR. POWERGLIDE PATENT AND FLUSHED. BED IN LOWEST POSITION. CALL LIGHT WITHIN REACH. REPORT GIVEN TO ONCOMING RN.
--- NOTE | 2019-12-20 10:18 | NUR ---
pt opens eyes with stimulus she is no verbal except for moaning with turns and jonathon care. Review with RN prn meds and what has been working. will follow up with care managers on discharge.
--- NOTE | 2019-12-20 11:09 | NUR ---
SHE IS LAYING ON HER RIGHT SIDE AND LOOKS VERY COMFORTABLE. YELLOW URINE IN DOUGLAS BAG. RECTAL TUBE HAS SOME GREEN BROW LIQUID IN THE TUBING BUT NOT BAG. RESPIRATIONS ARE REGULAR.
--- NOTE | 2019-12-20 11:13 | NUR ---
SHE IS LAYING ON HER RIGHT SIDE AND LOOKS VERY COMFORTABLE. HER RESPIRATIONS ARE REGULAR AND UNLABORED. DOUGLAS PATENT. RECTAL TUBE HAS SOME GREEN BROWN FLUID IN THE TUBING.
--- NOTE | 2019-12-20 11:15 | NUR ---
SHE HAS BEEN TURNED TO HER LEFT SIDE. SHE ANSWERED A YES THAT I THOUGHT WAS APPROPRIATE. OTHERWISE SHE MOANED AND ANSWERED NO OTHER QUESTIONS. SHE QUIETED SOON WE FINISHED REPOSITIONING HER. LOC DECREASED. SHE LOOKS COMFORTABLE. NO DYSPNEA OR TACHYPNEA.
--- NOTE | 2019-12-20 14:38 | NUR ---
NO CHANGE IN CONDITION. HER SISTER IN LAW HERE WITH HER BUT YUE HAS NOT RESPONDED TO HER. SHE LOOKS VERY COMFORTABLE.
--- NOTE | 2019-12-20 14:40 | NUR ---
SHE HAS BEEN TURNED NOW TO HER RIGHT SIDE. WHEN WE TOLD HER WE WERE GOING TO TURN HER, SHE SAID "NO YOU'RE NOT". NO FURTHER CONVERSATION FROM HER AFTER THAT. SHE MOANED A LITTLE.
--- NOTE | 2019-12-20 15:52 | NUR ---
SHE IS RESTING COMFORTABLY ON HER RIGHT SIDE. RESP. ARE 16/MIN. SHE HAS RECEIVED ROXANOL X1 TODAY PREMED FOR TURNING.
--- NOTE | 2019-12-20 18:17 | NUR ---
I GAVE HER ROXANOL X2 THIS SHIFT. THE FIRST TIME ON MY OWN AND THE SECOND TIME SHE WAS MORE AWAKE. I ASKED HER IF SHE WOULD LIKE ANY PAIN MEDICINE. SHE SAID "THAT WOULD BE NICE" AND AFTER ORAL CARE SHE SAID "THANK YOU". SHE APPEARS COMFORTABLE NEARLY ALL THE TIME. HER NORMA VISITED TODAY BUT YUE WAS NOT ALERT AT THE TIME. SHE HAS NOT BEEN ALERT MUCH TODAY. ONLY SCANT DRAINAGE THROUGH THE RECTAL TUBE. NO LEAKING AROUND IT. IT WAS JUST PLACED YESTERDAY. WILL MONITOR. I EMPTIED 275 MLS FROM THE DOUGLAS CATHETER BUT DO NOT KNOW WHEN IT WAS LAST EMPTIED.
--- NOTE | 2019-12-21 05:19 | NUR ---
AUXILIARY POWERPLANT OPERATOR SUMMARY NO ACUTE CHANGES. PT REMAINS ON COMFORT CARE. MEDICATED X1 WITH 10 MG ROXANOL PER PT REQUEST. PT ABLE TO SPEAK IN SHORT SENTENCES AT TIMES AND CAN MAKE MOST OF HER NEEDS KNOWN. RECTAL TUBE AND DOUGLAS CATH IN PLACE, BOTH WITH MINIMAL DRAINAGE. WILL CONTINUE TO MONITOR PT UNTIL DAY SHIFT RN ASSUMES CARE.
--- NOTE | 2019-12-21 11:44 | NUR ---
0800 NOTE SHE IS COMFORTABLE ON HER LEFT SIDE.
--- NOTE | 2019-12-21 13:00 | NUR ---
1000 NOTE I SPOKE TO HER BUT SHE DID NOT RESPOND. SHE IS SLEEPY AND COMFORTABLE. RESPIRATIONS ARE REGULAR.
--- NOTE | 2019-12-21 13:03 | NUR ---
1215 NOTE ROUNDED. SHE FOLLOWED HIS INSTRUCTIONS TO HOLD UP 2 FINGERS THEN 4 FINGERS. AFTER HE ROUNDED AND GAVE ME THE VERBAL ORDER TO DC THE RECTAL TUBE I DID. SMALL AMT OF PASTEY BROWN STOOL AT RECTUM. CATH CARE DONE. DONALD CARE DONE. NEW FOAM PATCH PUT OVER EXCORIATED SKIN ON COCCYX. TURNED TO HER BACK WITH HER SHOULDERS FLOATED AND HOB UP 30 DEGREES. I ASKED HER IF SHE WOULD LIKE PAIN MEDICINE. SHE NODDED YES. SHE COULD NOT REALLY TELL ME WHERE HER PAIN WAS.
--- NOTE | 2019-12-21 15:00 | NUR ---
Comfort Care: Pt appears comfortable. Appropriate medication profile, no s/s of distress.
--- NOTE | 2019-12-21 15:30 | NUR ---
1400 NOTE RESTING COMFORTABLY. SHE IS ASLEEP. RESPIRATIONS REGULAR AND UNLABORED.
--- NOTE | 2019-12-21 17:55 | NUR ---
NO CHANGES EXCEPT HER SISTER IN LAW IS HERE WITH HER. THE PATIENT CAN INTERACT WITH HER A LITTLE BIT.
--- NOTE | 2019-12-21 18:03 | NUR ---
Comfort Measures: Called to pt's room by nurse. Family member is present and very upset. Reviewed s/s of dying process. Questions answered. Therapeutic visit. This is the pt's daughter in law. Her has already , however, she remained close to the pt. Instructed that pt may be waiting to see someone that she has been close to. Suffering reviewed. Self care encouraged. Will remain available.
--- NOTE | 2019-12-21 19:37 | NUR ---
HER SISTER IN LAW SPOKE WITH PALLIATIVE CARE. SHE JUST WENT HOME. YUE'S DAUGHTER CALLED EARLIER TODAY. YUE HAS BEEN COMFORTABLE ALL DAY. I GAVE ROXANOL FOR POSSIBLE DISCOMFORT WITH LAYING IN ONE POSITION FOR A LONG TIME OR FOR MOVING. RESPIRATIONS REMAIN REGULAR. U.O. FOR THIS SHIFT 275 MLS. RECTAL TUBE WAS DC'D THIS MORNING. NO BM.
--- NOTE | 2019-12-22 09:00 | NUR ---
PT CIRILO. SUCTIONED WHAT I CAN. CALLED RT LISS. SHE DID SOME. SOME IMPROVED. PT NON RESPONDING. BED IN LOW POSITION, CALL LITE IN REACH. BED ALARM ON FOR SAFETY
--- NOTE | 2019-12-22 09:15 | NUR ---
Comfort Care: Pt has increased respirations, 26 per min; shallow. She is having secretions. Scopolomine patch on. Gentle suctioning, pt has no gag reflex. Suctioning did help reduce secretions moderate yellow, thick sputum. Pt's feet are warm and pink; no mottling noted. Warm skin throughout. Provided comfort blanket. Discussed with JR Soto. Plan made for roxanol and atropine medications at this time. Will reassess today for symtpoms. No other concerns, family not at bedside.
--- NOTE | 2019-12-22 10:48 | NUR ---
PT WHITE. NOT BREATHING. NOTHING HEARD WITH STETHASCOPE. NO H/R. WITH STETHASCOPE OR PULSES AT WRISTS. CALLED CASTING SORTER. NOTIFIED. CALLED DR ANTONIO. PASSED 10:48. CALLED FAMILY BENJAMIN BARROW. CALLED FAMILY CHRISTA. NOTIFIED OF DATE, TIME OF PASSING. SHE STATES DANIAL IN [place]. DOES NOT EXPECT SHE WILL COME SEE PT. CHRISTA STATES DID STAY WITH HER SOME LAST NITE. WILL NOT COME TODAY.
== END 2019-12-22 10:48 | DRG 870 ==
LOC: ER 19:26 → ICUE 20:40 → ICUW 20:40 → ICUE 21:32 → PCU 12-14 16:32 → MEDS 12-17 10:47
PROVIDERS: Emergency Medicine; Internal Medicine; Internal Medicine Critical Care Medicine; Internal Medicine Pulmonary Disease; ADMIT Hospitalist
PROC: 3E043XZ Introduction of Vasopressor into Central Vein, Percutaneous Approach (ICD-10-PCS; 2019-12-05)
PROC: 02HV33Z Insertion of Infusion Device into Superior Vena Cava, Percutaneous Approach (ICD-10-PCS; 2019-12-05)
PROC: 0BH17EZ Insertion of Endotracheal Airway into Trachea, Via Natural or Artificial Opening (ICD-10-PCS; principal; 2019-12-06)
PROC: 5A1955Z Respiratory Ventilation, Greater than 96 Consecutive Hours (ICD-10-PCS; 2019-12-06)
PROC: 0S903ZX Drainage of Lumbar Vertebral Joint, Percutaneous Approach, Diagnostic (ICD-10-PCS; 2019-12-07)
DX: A41.9 Sepsis, unspecified organism (principal); R65.21 Severe sepsis with septic shock; G93.41 Metabolic encephalopathy; J96.01 Acute respiratory failure with hypoxia; I63.81 Other cerebral infarction due to occlusion or stenosis of small artery; R40.20 Unspecified coma; E11.11 Type 2 diabetes mellitus with ketoacidosis with coma; N17.9 Acute kidney failure, unspecified; E87.1 Hypo-osmolality and hyponatremia; E11.65 Type 2 diabetes mellitus with hyperglycemia; Z79.4 Long term (current) use of insulin; T68.XXXA Hypothermia, initial encounter
CPT/HCPCS: 0097U; 31720; 36415; 36556; 36600; 51702; 70450; 71045; 74176; 80047; 80048; 80053; 80202; 81001; 82140; 82274; 82330; 82550; 82607; 82728; 82746; 82803; 82945; 82947; 83540; 83550; 83605; 83735; 84100; 84132; 84157; 84443; 84478; 84484; 85014; 85025; 85610; 85730; 86038; 86039; 86160; 86225; 86235; 87040; 87070; 87077; 87086; 87186; 87205; 87480; 87483; 87493; 87510; 87660; 87804; 89051; 92526; 92610; 93005; 93010; 93306; 94002; 94003; 94660; 94762; 95819; 96360-59; 97110; 97162; 97167; 99291-25; C1751; C9113; J0360; J0610; J0694; J0696; J1644; J1650; J1815; J2060; J2543; J2704; J3370; J3411; J3475; J3480; J7030; J7040; J7050; J7060; J7070; J7120; J7131